=== PATIENT | female | born 1955 | race Caucasian/White ===

== ENCOUNTER 2017-02-07 18:40 | Observation (INO) | payer BC ==
--- NOTE | 2017-02-07 20:00 | ED ---
Elena Alexander Edward, scribed for Liang Hernandez MD on 02/07/17 at 1923 . HPI Febrile Illness - HPI Summary HPI Summary: 61 y/o female presents to ED c/o fever (high 101) and chills starting at 11:00 this morning. Associated sx: fungus on finger, body aches, fatigue and loss of appetite today. The body aches are rated at a 9/10 in severity at triage. The patient states she felt fine yesterday. Denies diarrhea, burning with urination. - History of Current Complaint Chief Complaint: EDFever Hx Obtained From: Patient Onset/Duration: Started Hours Ago Initial Severity: Severe Current Severity: Severe Pain Intensity: 9 Pain Scale Used: 0-10 Numeric Associated Signs and Symptoms: Arthralgia - body aches, Chills, Other: - fatigue , loss of appetite, fungus on finger - Allergy/Home Medications Allergies/Adverse Reactions: Allergies Allergy/AdvReac Type Severity Reaction Status Date / Time No Known Allergies Allergy Verified 12/06/15 09:20 PMH/Surg Hx/FS Hx/Imm Hx Previously Healthy: No Endocrine/Hematology History: Denies: Hx Diabetes Musculoskeletal History: Reports: Hx Arthritis - Surgical History Surgery Procedure, Year, and Place: [facility] Infectious Disease History: No Infectious Disease History: Denies: Traveled Outside the [place] in Last 30 Days - Family History Known Family History: Positive: Diabetes - Grandmother, Other - Mother - polio. Grandmother - cancer - Social History Alcohol Use: None Hx Substance Use: No Substance Use Type: Reports: None Hx Tobacco Use: No Smoking Status (MU): Never Smoked Tobacco Review of Systems Positive: Fever, Chills, Fatigue, Other - Loss of appetite Eyes: Negative ENT: Negative Cardiovascular: Negative Respiratory: Negative Gastrointestinal: Negative Negative: Diarrhea Genitourinary: Negative Negative: burning Positive: Arthralgia - Body aches Skin: Negative Neurological: Negative Psychological: Normal All Other Systems Reviewed And Are Negative: Yes Physical Exam Triage Information Reviewed: Yes Vital Signs On Initial Exam: Initial Vitals Temp Pulse Resp BP Pulse Ox 98.8 F 105 17 150/79 92 02/07/17 18:43 02/07/17 18:43 02/07/17 18:43 02/07/17 18:43 02/07/17 18:43 Vital Signs Reviewed: Yes Appearance: Positive: Well-Appearing, No Pain Distress, Obese - morbidly Skin: Positive: Warm Head/Face: Positive: Normal Head/Face Inspection Eyes: Positive: SANDRA ENT: Positive: Hearing grossly normal, Pharynx normal Neck: Positive: Supple Respiratory/Lung Sounds: Positive: Clear to Auscultation, Breath Sounds Present Cardiovascular: Positive: RRR Abdomen Description: Positive: Soft, Other: - obese, mildly indurated pannicula. Negative: CVA Tenderness (R), CVA Tenderness (L) Bowel Sounds: Positive: Present Musculoskeletal: Positive: Strength/ROM Intact Neurological: Positive: Alert, Oriented to Person Place, Time Psychiatric: Positive: Affect/Mood Appropriate Diagnostics - Vital Signs Vital Signs Temp Pulse Resp BP Pulse Ox 02/07/17 18:43 98.8 F 105 17 150/79 92 - Laboratory Result Diagrams: 02/07/17 20:04 02/07/17 20:04 Lab Statement: Any lab studies that have been ordered have been reviewed, and results considered in the medical decision making process. - Radiology CXR Xray Interpretation: No Acute Changes - FINDINGS SUGGESTIVE OF COPD, NO EVIDENCE FOR ACUTE CHANGES Radiology Interpretation Completed By: Radiologist Re-Evaluation - Re-Evaluation 1 Comment: resultsd/w pt, case d/w hospitalist Course/Dx - Course Assessment/Plan: 61 y/o female presents to ED c/o febrile illness (high 101). CXR suggests COPD but no acute changes. Test results show WBC 14.8. Patient will be admitted to [facility] after discussion with Dr. Contreras Glover. - Diagnoses Provider Diagnoses: UTI (urinary tract infection) - Provider Notifications Instructed by Provider To: Admit As Inpatient Discharge - Discharge Plan Condition: Fair Disposition: ADMITTED TO [facility] documentation as recorded by the Elena baer Edward accurately reflects the service I personally performed and the decisions made by me, Liang Hernandez MD.
--- NOTE | 2017-02-07 20:03 | RAD ---
INDICATION: Fever. COMPARISON: Comparison is made with a prior testicular study from June 16, 2013. TECHNIQUE: AP and lateral views of the chest were obtained. FINDINGS: The heart is within normal limits in size. Mediastinal and hilar contours appear within normal limits. The lungs are hyperinflated and clear. No pleural effusion is seen. IMPRESSION: FINDINGS SUGGESTIVE OF COPD, NO EVIDENCE FOR ACUTE FINDING.
[2017-02-07 20:12] LABS: Hematocrit 43 % (35-47); Hemoglobin 13.9 g/dl (12.0-16.0); Mean Corpuscular HGB Conc 33 g/dl (31-36); Mean Corpuscular Hemoglobin 28 pg (27-31); Mean Corpuscular Volume 85 fL (80-97); Mean Platelet Volume 9 um3 (7.4-10.4); Red Blood Count 5.03 10^6/ul (4.0-5.4); Red Cell Distribution Width 14 % (10.5-15); White Blood Count 14.8 10^3/ul (3.5-10.8)
[2017-02-07 20:18] LABS: Add Diff/Slide Review? Slide Review Added; Comments Flag Yes
[2017-02-07 20:26] LABS: Albumin 3.5 g/dL (3.2-5.2); BUN/Creatinine Ratio 12.1 (8-20); Calcium 8.6 mg/dL (8.6-10.3); EGFR African American 73.1 (>60); EGFR Non-African American 56.8 (>60); Globulin 3.5 g/dL (2-4); Potassium 4.1 mmol/L (3.5-5.0); Total Bilirubin 0.8 mg/dL (0.2-1.0)
[2017-02-07 20:34] LABS: Urine Bacteria 2+ (Absent); Urine Bilirubin Negative (Negative); Urine Glucose Negative (Negative); Urine Nitrite Positive (Negative)
[2017-02-07] MEDS ORDERED: Levofloxacin 500 MG IVPREMIX(* 500 MG/100 ML BAG IVPB ONE (20:46)
[2017-02-07] MEDS ORDERED: Acetaminophen TAB* 325 MG PO PRN (21:45)
[2017-02-07] MEDS ORDERED: Albuterol 2.5 MG/3 ML NEB.SOL* (0.083%) INH PRN (21:45)
[2017-02-07] MEDS ORDERED: Ondansetron INJ* 2 MG/ML VIAL IV PRN (21:46)
[2017-02-07] MEDS ORDERED: traMADol TAB* 50 MG PO PRN (21:46)
[2017-02-07] MEDS ORDERED: Phenazopyridine TAB* 100 MG PO PRN (21:47)
--- NOTE | 2017-02-07 21:49 | HP ---
H&P (Free Text) History and Physical: PCP: Sheeba Martel MD Date/Time of Evaluation: 02/07/2017 2325 CC: fever HPI: Mrs Mccoy is a 61YO super morbidly obese female presents reporting rapid onset of malaise associated with F/C, bi-temporal headache, generalized weakness , and decreased appetite. She has a HX of sepsis 2nd panniliculitis out of concern for which she decided to come for evaluation. She denies sweats, earache , sore throat, confusion, chest pain, change in baseline SOB, cough, or congestion. 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 Interestingly she is adamant her fingernails were absolutely normal this AM prior to becoming ill and now have sub-ungual yellowing and onycholysis. PMedHx super morbid obesity psoriatic arthritis sepsis 2nd panniliculitis GERD overactive bladder anxiety Ambulatory Orders Nursing to reconcile. Furosemide TAB* [Lasix TAB*] 40 mg PO DAILY 03/07/13 Omeprazole CAP* [Prilosec CAP*] 20 mg PO DAILY 03/07/13 Amoxicillin/Clavulanate TAB* [Augmentin TAB*] 875 mg PO BID 04/29/15 Meloxicam(NF) [Mobic(NF)] 7.5 mg PO BID WITH MEALS 04/29/15 Miconazole Nitrate (Topical) [Lotrimin AF Powder] 2 % TOPICAL TID 04/29/15 Oxybutynin TAB* [Ditropan TAB*] 5 mg PO TID 04/29/15 Potassium Chloride LIQUID* [Klor-Con LIQUID*] 20 meq PO DAILY 04/29/15 Spironolactone TAB* [Aldactone TAB*] 100 mg PO DAILY 04/29/15 Diazepam TAB(*) [Valium TAB(*)] 5 mg PO Q6H PRN #15 tab MDD 4 12/06/15 oxyCODONE/Acetamin 5/325 MG* [Percocet 5/325 TAB*] 1 tab PO Q8H PRN #10 tab MDD 4 12/06/15 Allergies No Known Allergies Allergy (Verified 12/06/15 09:20) PSurgHx cholecystectomy SocHx: quit smoking >10years ago w/ ~35PYHX, denies alcohol & recreational drug use; lives with her ; 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 Father passed in his 60s from gastric CA 2nd alcoholism. Sister1: breast CA survivor; Sister2: urinary CA survivor. Son: psoriasis; Daughter: psoriasis ROS: as above, otherwise reviewed and all were negative Constitutional: NAD, normally developed, supermorbidly obese white female vitals: Vital Signs Temp 37.1 C 02/07/17 18:43 Pulse 105 02/07/17 18:43 Resp 17 02/07/17 18:43 BP 150/79 02/07/17 18:43 Pulse Ox 92 02/07/17 18:43 Intake & Output 02/06/17 02/07/17 02/07/17 23:59 11:59 23:59 Weight 181.437 kg HEENM: atraumatic; sclera/conjunctiva: non-icteric/clear; hearing: clinically intact; oropharynx: clear, mucosa moist Neck: soft tissue: non-tender; thyroid: normal Pulmonary: diminished B, fair aeration, no accessory muscle use CV: RR/RR, normal S1S2, no carotid bruit, no jugular venous distention, 2+ B DP/ PT, no edema Abdominal: large pendulous panniliculus with chronic induration with small area of serous drainage under on patient's left without tenderness, warmth, malodor, or flocculence; soft, protuberant, non-distended, non-tender, no rebound/ guarding/rigidity, normoactive bowel sounds, no hepatosplenomegaly or masses, no costovertebral angle tenderness Musculoskeletal: general: grossly intact w/o tenderness Integumental: as above; otherwise multiple fingernails have chronic changes of psoriatic arthritis with pitting along with evidence of fungal infection and onycholysis which would have taken weeks to form despite her insistent it has been hours Psychiatric orientation: AA&O to PPS affect: calm mood: cooperative eye contact: good content: reliable responses: timely insight: good Testing: Lab Results 02/07/17 02/07/17 02/07/17 Range/Units 20:04 20:04 20:22 WBC 14.8 H (3.5-10.8) 10^3/ul RBC 5.03 (4.0-5.4) 10^6/ul Hgb 13.9 (12.0-16.0) g/dl Hct 43 (35-47) % MCV 85 (80-97) fL MCH 28 (27-31) pg MCHC 33 (31-36) g/dl RDW 14 (10.5-15) % Plt Count 157 (150-450) 10^3/ul MPV 9 (7.4-10.4) um3 Neut % (Auto) 95.6 H (38-83) % Lymph % (Auto) 2.0 L (25-47) % [place] % (Auto) 1.7 (1-9) % Eos % (Auto) 0.2 (0-6) % Baso % (Auto) 0.5 (0-2) % Absolute Neuts (auto) 14.2 H (1.5-7.7) 10^3/ul Absolute Lymphs (auto) 0.3 L (1.0-4.8) 10^3/ul Absolute Monos (auto) 0.3 (0-0.8) 10^3/ul Absolute Eos (auto) 0 (0-0.6) 10^3/ul Absolute Basos (auto) 0.1 (0-0.2) 10^3/ul Absolute Nucleated RBC 0.01 10^3/ul Nucleated RBC % 0 Sodium 133 (133-145) mmol/L Potassium 4.1 (3.5-5.0) mmol/L Chloride 98 L (101-111) mmol/L Carbon Dioxide 30 (22-32) mmol/L Anion Gap 5 (2-11) mmol/L BUN 12 (6-24) mg/dL Creatinine 0.99 H (0.51-0.95) mg/dL Est GFR ( Amer) 73.1 (>60) Est GFR (Non-Af Amer) 56.8 (>60) BUN/Creatinine Ratio 12.1 (8-20) Glucose 135 H (70-100) mg/dL Calcium 8.6 (8.6-10.3) mg/dL Total Bilirubin 0.80 (0.2-1.0) mg/dL AST 18 (13-39) U/L ALT 14 (7-52) U/L Alkaline Phosphatase 107 H (34-104) U/L Total Protein 7.0 (6.4-8.9) g/dL Albumin 3.5 (3.2-5.2) g/dL Globulin 3.5 (2-4) g/dL Albumin/Globulin Ratio 1.0 (1-3) Urine Color Yellow Urine Appearance Cloudy Urine pH 7.0 (5-9) Ur Specific [place] 1.012 (1.010-1.030) Urine Protein Negative (Negative) Urine Ketones Negative (Negative) Urine Blood 2+ H (Negative) Urine Nitrate Positive H (Negative) Urine Bilirubin Negative (Negative) Urine Urobilinogen Negative (Negative) Ur Leukocyte Esterase 2+ H (Negative) Urine WBC (Auto) 3+(>20/hpf) H (Absent) Urine RBC (Auto) 3+(>10/hpf) H (Absent) Ur Squamous Epith Cells Present H (Absent) Urine Bacteria 2+ H (Absent) Urine Glucose Negative (Negative) CXR, personally reviewed: IMPRESSION: FINDINGS SUGGESTIVE OF COPD, NO EVIDENCE FOR ACUTE FINDING. Impression: 61F super morbidly obese (BMI 73) presents with fever found to have UTI DIAGNOSIS & PLAN Primary febrile UTI : observation for initiation of ABX via IV : urine CX : supportive care Secondary super morbid obesity : nutrition consult : PT/OT evaluations GERD : omeprazole psoriatic osteoarthritis : review medications once reconciled Admission Rational: obseravation for initiation of ABX via IV for febrile UTI DVTp: SCDs & heparin SQ Code Status: full HCP:
[2017-02-07] MEDS ORDERED: Ondansetron INJ* 2 MG/ML VIAL ONE (21:53)
[2017-02-08] MEDS ORDERED: Heparin VIAL(*) 5000 UNITS/ML VIAL (FIVE THOUSAND) SUBCUT SCH (06:00)
[2017-02-08] MEDS ORDERED: Omeprazole CAP* 20 MG PO SCH (06:00)
[2017-02-08 06:55] LABS: Hematocrit 40 % (35-47); Hemoglobin 13.1 g/dl (12.0-16.0); Mean Corpuscular HGB Conc 33 g/dl (31-36); Mean Corpuscular Hemoglobin 28 pg (27-31); Mean Corpuscular Volume 85 fL (80-97); Mean Platelet Volume 10 um3 (7.4-10.4); Red Cell Distribution Width 14 % (10.5-15)
[2017-02-08] MEDS ORDERED: Docusate CAP* 100 MG PO SCH (09:00)
--- NOTE | 2017-02-08 11:12 | PN ---
Subjective Date of Service: 02/08/17 Interval History: Ms. Mccoy states that she is feeling great this morning. She denies chest pain , SOB, nausea, or abdominal/flank pain. She is eager for discharge to home. Objective Active Medications: Acetaminophen (Tylenol Tab*) 650 mg PO Q6H PRN Albuterol (Ventolin 2.5 Mg/3 Ml Neb.Ifeoma*) 2.5 mg INH Q2H PRN Docusate Sodium (Colace Cap*) 200 mg PO BID ELENA Heparin Sodium (Porcine) (Heparin Vial(*)) 5,000 units SUBCUT Q8HR ELENA Lactated Ringer's (Lactated Ringers 1000 Ml Bag*) 1,000 mls @ 75 mls/hr IV PER RATE ELENA Levofloxacin/Dextrose (Levaquin 250 Mg Ivpremx(*)) 250 mg in 50 mls @ 50 mls/ hr IVPB Q24H ELENA Melatonin (Melatonin (Nf)) 3 mg PO BEDTIME PRN; Protocol Omeprazole (Prilosec Cap*) 20 mg PO DAILY@0600 ELENA Ondansetron HCl (Zofran Inj*) 4 mg IV Q6H PRN Phenazopyridine HCl (Pyridium Tab*) 200 mg PO TID PRN Tramadol HCl (Ultram*) 50 mg PO Q6H PRN Vital Signs 02/07/17 02/07/17 02/07/17 21:38 21:39 21:40 Temperature 98.4 F 98.8 F Pulse Rate 74 82 80 Respiratory 18 20 18 Rate Blood Pressure 122/67 152/74 (mmHg) O2 Sat by Pulse 98 96 99 Oximetry 02/07/17 02/07/17 02/07/17 21:41 22:00 22:30 Temperature 98.8 F Pulse Rate 76 86 82 Respiratory 18 18 20 Rate Blood Pressure 105/58 152/74 (mmHg) O2 Sat by Pulse 97 95 96 Oximetry 02/08/17 02/08/17 04:11 07:26 Temperature 98.1 F Pulse Rate 89 Respiratory 18 18 Rate Blood Pressure 116/52 (mmHg) O2 Sat by Pulse 94 Oximetry Oxygen Devices in Use Now: None Appearance: Female lying in bed in NAD Eyes: No Scleral Icterus Ears/Nose/Mouth/Throat: NL Teeth, Lips, Gums Neck: NL Appearance and Movements; NL JVP, Trachea Midline Respiratory: Symmetrical Chest Expansion and Respiratory Effort, Clear to Auscultation Cardiovascular: NL Sounds; No Murmurs; No JVD, No Edema Abdominal: NL Sounds; No Tenderness; No Distention Lymphatic: No Cervical Adenopathy Extremities: No Edema Skin: No Rash or Ulcers, - - Erythema to distal pannus, unchanged from baseline per patient and her partner Neurological: Alert and Oriented x 3, NL Muscle Strength and Tone Nutrition: Taking PO's Result Diagrams: 02/08/17 06:04 02/07/17 20:04 Assess/Plan/Problems-Billing Assessment: Ms. Mccoy is a 61 yo female with super morbid obesity and psoriatic arthritis who was admitted on 02/07/17 with febrile UTI. - Patient Problems (1) UTI (urinary tract infection) Comment: - No fever overnight, feels quite well. Tolerating oral intake. No flank, back or abdominal pain. - Switch to bactrim to complete 5 day course. Status and Disposition: OBV. Discharge to home.
[2017-02-08 11:57] VITALS: BP 108/62
[2017-02-08] MEDS ORDERED: Levofloxacin 250 MG IVPREMX(*) 250 MG/50 ML BAG IVPB SCH (22:00)
[2017-02-08] MEDS ORDERED: CMCS: Melatonin (NF) 3 MG TAB PO PRN (22:00)
--- NOTE | 2017-02-09 03:26 | DS ---
CC: Dr. Martel * [facility] MEDICINE DISCHARGE SUMMARY: DATE OF ADMISSION: 02/07/17 DATE OF DISCHARGE: 02/08/17 PRIMARY CARE PHYSICIAN: Dr. Martel. ATTENDING PHYSICIAN: Umm Zaidi MD * (dictation provided by Jane Bedoya NP ). PRIMARY DIAGNOSIS: Urinary tract infection. SECONDARY DIAGNOSES: 1. History of super morbid obesity. 2. Psoriatic arthritis. 3. Sepsis secondary to panniculitis. 4. Gastroesophageal reflux disease. 5. Overactive bladder. 6. Anxiety. MEDICATIONS: At the time of discharge: 1. Oxycodone/acetaminophen 5/325 mg one tab p.o. as needed. 2. Diazepam 5 mg p.o. q.6 hours as needed. 3. Oxybutynin 5 mg p.o. t.i.d. 4. Spironolactone 100 mg p.o. daily. 5. Potassium chloride 20 mEq p.o. daily. 6. Omeprazole 20 mg p.o. daily. 7. Miconazole t.i.d. 8. Meloxicam 7.5 mg p.o. b.i.d. with meals. 9. Furosemide 40 mg p.o. daily. HOSPITAL COURSE: Ms. Mccoy is a 61-year-old female with past medical history of psoriatic arthritis, super morbid obesity and sepsis secondary to panniculitis who presented to the hospital on 02/07/17 with concern for fever. Please see the dictated H and P from Dr. Contreras Glover for complete details. In brief, the patient has history of severe illness with panniculitis associated with fever and therefore, she came for evaluation to the ED. In the emergency room, it appeared that her pannus was essentially at baseline in terms of its erythema; however, she had a white blood cell count of 14.8 and urinalysis positive with 2+ leuk esterase and positive nitrites. Ms. Mccoy was monitored in the hospital overnight. She was treated with intravenous Levaquin initially. She has had no fever. Her vital signs are otherwise stable. Her white blood cell count is essentially normal today at 11. She is tolerating oral intake well and is eager for discharge to home. Ms. Mccoy is medically stable for discharge to home for treatment of her urinary tract infection. She does not have a history of frequent UTIs per our record with no resistant organisms identified. I, therefore, plan to treat with Bactrim x5-day course. The patient will follow up with Dr. Martel regarding results from the urine culture. DISPOSITION: To home. DIET: Low fat, low salt. ACTIVITY: As tolerated. FOLLOWUP PLANS: Please follow up with Dr. Martel regarding results of urine culture. TIME SPENT: Approximately 60 minutes was spent in the discharge of this patient , more than half the time was spent with the patient at the bedside reviewing the events leading up to this hospitalization, performing the physical examination, and reviewing my plan of care. JANE BEDOYA NP [id number]/[facility] #: [id number] OLAF
== END 2017-02-08 12:30 | disposition home or self-care (01) ==
LOC: ED 18:40 → MED 21:13
PROVIDERS: ADMIT Hospitalist; ATTEND Internal Medicine
DX: N39.0 Urinary tract infection, site not specified (principal); E66.01 Morbid (severe) obesity due to excess calories; L40.50 Arthropathic psoriasis, unspecified; K21.9 Gastro-esophageal reflux disease without esophagitis; N32.81 Overactive bladder; F41.9 Anxiety disorder, unspecified; Z79.899 Other long term (current) drug therapy; Z87.891 Personal history of nicotine dependence
CPT/HCPCS: 36415; 71020; 80053; 81003; 81015; 85025; 87077; 87086; 87186; 96365; 96372; 96375; 99285; A9270-GY; G0378; J1644; J1956; J2405

== ENCOUNTER 2017-12-01 13:59 | Inpatient (IN) | payer BC ==
[2017-12-01] MEDS ORDERED: NS 0.9% 1000 ML* 1,000 ML IV ONE (14:28)
[2017-12-01] MEDS ORDERED: Levofloxacin 750 MG IVPREMIX(* 750 MG/150 ML BAG IVPB ONE (14:35)
--- NOTE | 2017-12-01 14:53 | RAD ---
HISTORY: Fever, hypotension COMPARISONS: February 07, 2017 VIEWS: 1: frontal portable view of the chest at 2:35 PM FINDINGS: LINES AND TUBES: None. CARDIOMEDIASTINAL SILHOUETTE: The cardiomediastinal silhouette is normal for portable technique. PLEURA: The costophrenic angles are sharp. No pleural abnormalities are noted. LUNG PARENCHYMA: The lungs are clear. ABDOMEN: The upper abdomen is clear. There is no subphrenic gas. BONES AND SOFT TISSUES: Degenerative changes are noted along the spine. IMPRESSION: NO ACTIVE CARDIOPULMONARY DISEASE.
[2017-12-01 15:10] LABS: ABS Basophils 0 10^3/ul (0-0.2); ABS Eosinophils 0 10^3/ul (0-0.6); ABS Lymphocytes 0.3 10^3/ul (1.0-4.8); ABS Monocytes 0.4 10^3/ul (0-0.8); ABS Neutrophils 16.6 10^3/ul (1.5-7.7); ABS Nucleated RBC 0 10^3/ul; Eosinophil % 0.2 % (0-6); Hematocrit 40 % (35-47); Hemoglobin 13.1 g/dl (12.0-16.0); Lymphocyte % 1.9 % (25-47); Mean Corpuscular HGB Conc 33 g/dl (31-36); Mean Corpuscular Hemoglobin 27 pg (27-31); Mean Corpuscular Volume 82 fL (80-97); Mean Platelet Volume 9.3 um3 (7.4-10.4); Nucleated Red Blood Cells % 0; Platelet Count 170 10^3/ul (150-450); Red Blood Count 4.82 10^6/ul (4.0-5.4); Red Cell Distribution Width 15 % (10.5-15); White Blood Count 17.4 10^3/ul (3.5-10.8)
[2017-12-01 15:28] LABS: INR 1.28 (0.77-1.02)
[2017-12-01 15:33] LABS: EGFR Non-African American 62.4 (>60)
[2017-12-01] MEDS ORDERED: NS 0.9% 1000 ML* 2,000 ML IV ONE (16:15)
--- NOTE | 2017-12-01 17:58 | ED ---
Wesley Alexander Jennifer, scribed for John Fonseca MD on 12/01/17 at 1419 . Complex/Multi-Sys Presentation - HPI Summary HPI Summary: The patient is a 62 y/o F who presents to the ED with weakness, fever, chills, and vaginal bleeding since one month ago. The patient states it started out as chills, body shakes, and fever. She was diagnosed with UTI and given antibiotics , which she finished a couple weeks ago. However, the symptoms began again last night. The patient complains her whole body feels like Im on fire and is swollen. She reports that her vaginal bleeding varies and typically gushes and clots at night, but subsides during the day. She denies dysuria or increased SOB. - History Of Current Complaint Hx Obtained From: Patient Onset/Duration: Sudden Onset, Still Present, Worse Since - last night, Other - began one month ago, went away, but worsened last night Timing: Constant Severity Currently: Moderate Severity Initially: Moderate Aggravating Factor(s): Laying down aggravates vaginal bleeding Associated Signs And Symptoms: Positive: Other - fever, chills, body shakes, weakness, vaginal bleeding. NEGATIVE: dysuria, SOB - Allergies/Home Medications Allergies/Adverse Reactions: Allergies Allergy/AdvReac Type Severity Reaction Status Date / Time No Known Allergies Allergy Verified 12/06/15 09:20 Home Medications: Home Medications Calcipotriene 0.005 % TOPICAL BID 12/01/17 [History Confirmed 12/01/17] Epinastine 0.05% OPHTH(NF) [Elestat 0.05% OPTH YAHAIRA (NF)] 1 drop BOTH EYES DAILY 12/01/17 [History Confirmed 12/01/17] Fluconazole 150 MG (NF) [Diflucan 150 mg (NF)] 150 mg PO ONCE 12/01/17 [History Confirmed 12/01/17] Halobetasol Propionate [Ultravate] 0.05 % TOPICAL BID 12/01/17 [History Confirmed 12/01/17] Miconazole Nitrate [Lotrimin AF] 2 % TOPICAL TID 12/01/17 [History Confirmed ] Nystatin CREAM* [Nystatin Cream*] 1 applic TOPICAL BID 12/01/17 [History Confirmed 12/01/17] Potassium Chlor TAB* [Klor Con ER TAB*] 20 meq PO DAILY 12/01/17 [History Confirmed 12/01/17] PMH/Surg Hx/FS Hx/Imm Hx Endocrine/Hematology History: Reports: Other Endocrine/Hematological Disorders - Hx sepsis Denies: Hx Diabetes Musculoskeletal History: Reports: Hx Arthritis Sensory History: Reports: Hx Contacts or Glasses Denies: Hx Hearing Aid Opthamlomology History: Reports: Hx Contacts or Glasses - Surgical History Surgery Procedure, Year, and Place: [facility] 2008 Infectious Disease History: Denies: Hx of Known/Suspected MRSA - Family History Known Family History: Positive: Diabetes - Grandmother, Other - Mother - polio. Grandmother - cancer - Social History Alcohol Use: None Hx Substance Use: No Substance Use Type: Reports: None Hx Tobacco Use: No Smoking Status (MU): Never Smoked Tobacco Review of Systems Positive: Fever, Chills, Other - Body shakes Negative: Shortness Of Breath Genitourinary: Other - vaginal bleeding Negative: dysuria All Other Systems Reviewed And Are Negative: Yes Physical Exam - Summary Physical Exam Summary: General: well-appearing, no pain distress Skin: warm, color reflects adequate perfusion, dry Head: normal Eyes: EOMI, SANDRA ENT: normal Neck: supple, nontender Respiratory: CTA, breath sounds present Cardiovascular: RRR Abdomen: soft, nontender, pannus is erythematous Bowel: present Musculoskeletal: normal, strength/ROM intact Neurological: sensory/motor intact, A&O x3 Psychological: affect/mood appropriate Triage Information Reviewed: Yes Vital Signs On Initial Exam: Initial Vitals Temp Pulse Resp BP Pulse Ox 98.5 F 99 28 90/65 94 12/01/17 14:10 12/01/17 14:10 12/01/17 14:10 12/01/17 14:10 12/01/17 14:10 Vital Signs Reviewed: Yes Diagnostics - Vital Signs Vital Signs Temp Pulse Resp BP Pulse Ox 12/01/17 16:00 82 109/69 98 12/01/17 15:55 26 12/01/17 15:00 87 97 12/01/17 14:27 99 94/79 95 12/01/17 14:22 97 93 12/01/17 14:15 90/65 12/01/17 14:10 98.5 F 99 28 90/65 94 - Laboratory Lab Results: Lab Results 12/01/17 12/01/1712/01/18 Range/Units 14:55 14:55 14:55 WBC 17.4 H (3.5-10.8) 10^3/ul RBC 4.82 (4.0-5.4) 10^6/ul Hgb 13.1 (12.0-16.0) g/dl Hct 40 (35-47) % MCV 82 (80-97) fL MCH 27 (27-31) pg MCHC 33 (31-36) g/dl RDW 15 (10.5-15) % Plt Count 170 (150-450) 10^3/ul MPV 9.3 (7.4-10.4) um3 Neut % (Auto) 95.5 H (38-83) % Lymph % (Auto) 1.9 L (25-47) % Craig % (Auto) 2.4 (0-7) % Eos % (Auto) 0.2 (0-6) % Baso % (Auto) 0 (0-2) % Absolute Neuts (auto) 16.6 H (1.5-7.7) 10^3/ul Absolute Lymphs (auto) 0.3 L (1.0-4.8) 10^3/ul Absolute Monos (auto) 0.4 (0-0.8) 10^3/ul Absolute Eos (auto) 0 (0-0.6) 10^3/ul Absolute Basos (auto) 0 (0-0.2) 10^3/ul Absolute Nucleated RBC 0 10^3/ul Nucleated RBC % 0 INR (Anticoag Therapy) 1.28 H (0.77-1.02) APTT 29.9 (26.0-36.3) seconds Sodium 136 L (139-145) mmol/L Potassium 4.1 (3.5-5.0) mmol/L Chloride 99 L (101-111) mmol/L Carbon Dioxide 31 (22-32) mmol/L Anion Gap 6 (2-11) mmol/L BUN 15 (6-24) mg/dL Creatinine 0.91 (0.51-0.95) mg/dL Est GFR ( Amer) 80.3 (>60) Est GFR (Non-Af Amer) 62.4 (>60) BUN/Creatinine Ratio 16.5 (8-20) Glucose 130 H (70-100) mg/dL Lactic Acid (0.5-2.0) mmol/L Calcium 8.7 (8.6-10.3) mg/dL Total Bilirubin 1.30 H (0.2-1.0) mg/dL AST 16 (13-39) U/L ALT 13 (7-52) U/L Alkaline Phosphatase 83 (34-104) U/L Total Creatine Kinase 48 (10-223) U/L Troponin I 0.00 (<0.04) ng/mL C-Reactive Protein 237.64 H (< 5.00) mg/L B-Natriuretic Peptide ( - 100) pg/mL Total Protein 6.7 (6.4-8.9) g/dL Albumin 3.3 (3.2-5.2) g/dL Globulin 3.4 (2-4) g/dL Albumin/Globulin Ratio 1.0 (1-3) Lipase < 10 L (11.0-82.0) U/L Procalcitonin (<0.6) ng/mL 12/01/17 12/01/17 12/01/17 Range/Units 14:55 14:55 14:55 WBC (3.5-10.8) 10^3/ul RBC (4.0-5.4) 10^6/ul Hgb (12.0-16.0) g/dl Hct (35-47) % MCV (80-97) fL MCH (27-31) pg MCHC (31-36) g/dl RDW (10.5-15) % Plt Count (150-450) 10^3/ul MPV (7.4-10.4) um3 Neut % (Auto) (38-83) % Lymph % (Auto) (25-47) % Craig % (Auto) (0-7) % Eos % (Auto) (0-6) % Baso % (Auto) (0-2) % Absolute Neuts (auto) (1.5-7.7) 10^3/ul Absolute Lymphs (auto) (1.0-4.8) 10^3/ul Absolute Monos (auto) (0-0.8) 10^3/ul Absolute Eos (auto) (0-0.6) 10^3/ul Absolute Basos (auto) (0-0.2) 10^3/ul Absolute Nucleated RBC 10^3/ul Nucleated RBC % INR (Anticoag Therapy) (0.77-1.02) APTT (26.0-36.3) seconds Sodium (139-145) mmol/L Potassium (3.5-5.0) mmol/L Chloride (101-111) mmol/L Carbon Dioxide (22-32) mmol/L Anion Gap (2-11) mmol/L BUN (6-24) mg/dL Creatinine (0.51-0.95) mg/dL Est GFR ( Amer) (>60) Est GFR (Non-Af Amer) (>60) BUN/Creatinine Ratio (8-20) Glucose (70-100) mg/dL Lactic Acid 1.2 (0.5-2.0) mmol/L Calcium (8.6-10.3) mg/dL Total Bilirubin (0.2-1.0) mg/dL AST (13-39) U/L ALT (7-52) U/L Alkaline Phosphatase (34-104) U/L Total Creatine Kinase (10-223) U/L Troponin I (<0.04) ng/mL C-Reactive Protein (< 5.00) mg/L B-Natriuretic Peptide 63 ( - 100) pg/mL Total Protein (6.4-8.9) g/dL Albumin (3.2-5.2) g/dL Globulin (2-4) g/dL Albumin/Globulin Ratio (1-3) Lipase (11.0-82.0) U/L Procalcitonin 1.6 H (<0.6) ng/mL Result Diagrams: 12/01/17 14:55 12/01/17 14:55 Lab Statement: Any lab studies that have been ordered have been reviewed, and results considered in the medical decision making process. - Radiology CXR Xray Interpretation: No Acute Changes - NO ACTIVE CARDIOPULMONARY DISEASE. Dr. Fonseca has reviewed this report. Radiology Interpretation Completed By: Radiologist - EKG 2383 Cardiac Rate: NL EKG Rhythm: Sinus Rhythm - [address] Segment: Normal Ectopy: None Complex Multi-Symp Course/Dx Course Of Treatment: 30ML/KG IV BOLUS NOT GIVEN DUE TO CONCERN OF CAUSING CHF. ADMIT HOSPITALIST. CRITICAL CARE TIME LESS THAN 30 MINUTES. - Diagnoses Provider Diagnoses: Panniculitis - Physician Notifications Discussed Care Of Patient With: Edenilson Griffin Time Discussed With Above Provider: 15:33 Instructed by Provider To: Admit As Inpatient Discharge - Sign-Out/Discharge Documenting (check all that apply): Discharge/Admit/Transfer - Discharge Plan Condition: Stable Disposition: ADMITTED TO [facility] - Billing Disposition and Condition Condition: STABLE [place] [facility] [place] The documentation as recorded by the Wesley baer Jennifer accurately reflects the service I personally performed and the decisions made by me, John Fonseca MD.
[2017-12-01] MEDS: cefTRIAXone(*) 1 GM in NS 0.9% 50 ML* 50 ML IVPB SCH (18:42)
[2017-12-01] MEDS: MELOXICAM 7.5 MG PO SCH (19:04)
[2017-12-01] MEDS ORDERED: Acetaminophen TAB* 325 MG PO PRN (20:03)
[2017-12-01] MEDS ORDERED: Ondansetron ODT TAB* 4 MG PO PRN (20:09)
[2017-12-01] MEDS: Oxybutynin TAB* 5 MG PO SCH (20:55)
--- NOTE | 2017-12-01 20:59 | PN ---
Hospitalist Progress Note Date of Service: 12/01/17 SEPSIS REASSESSMENT NOTE: TIME OF EVALUATION: 12/01/17 2100 CURRENT STAGE of SEPSIS: Sepsis Vital SIGNS: 12/01/17 12/01/17 12/01/17 14:10 14:15 14:22 Temperature 98.5 F Pulse Rate 99 97 Respiratory 28 Rate Blood Pressure 90/65 90/65 (mmHg) O2 Sat by Pulse 94 93 Oximetry 12/01/17 12/01/17 12/01/17 14:27 15:00 15:55 Temperature Pulse Rate 99 87 Respiratory 26 Rate Blood Pressure 94/79 (mmHg) O2 Sat by Pulse 95 97 Oximetry 12/01/17 12/01/17 12/01/17 16:00 16:27 16:57 Temperature Pulse Rate 82 95 82 Respiratory Rate Blood Pressure 109/69 112/81 96/48 (mmHg) O2 Sat by Pulse 98 94 99 Oximetry 12/01/17 12/01/17 12/01/17 17:00 17:27 17:44 Temperature 98.9 F Pulse Rate 82 86 86 Respiratory 16 Rate Blood Pressure 89/59 89/59 (mmHg) O2 Sat by Pulse 98 98 98 Oximetry 12/01/17 12/01/17 12/01/17 17:55 18:07 19:49 Temperature 98.7 F 98.7 F 98.8 F Pulse Rate 89 89 88 Respiratory 26 16 20 Rate Blood Pressure 124/65 124/65 115/54 (mmHg) O2 Sat by Pulse 95 95 97 Oximetry LACTIC ACID: 12/01/17 14:55 Lactic Acid 1.2 EXCEPTIONS to STANDARD CARE: As noted in the H+P Pt didn't receive full 30mg/kg fluid bolus, she instead received a 3L bolus. This is because of the patient's weight and she has had improvement in her SBP with 3L NS bolus. PHYSICAL ASSESSMENT: Immediate capillary refill, Lung sounds are clear to auscultation bilateral, Heart rate RRR, 2+ bilateral pedal pulses, skin with normal turgor with flushed cheeks, GCS 15.
[2017-12-01] MEDS: Nystatin TOP POWDER* 15 GM BTL TOPICAL SCH (21:52)
--- NOTE | 2017-12-01 22:14 | HP ---
CC: Mack Martel MD * HISTORY AND PHYSICAL: DATE OF ADMISSION: 12/01/17 ATTENDING PHYSICIAN: Edenilson Griffin MD * (dictated by Lara Lara NP) CHIEF COMPLAINT: Fevers, chills, redness to pannus. HISTORY OF PRESENT ILLNESS: Ms. Mccoy is a 62-year-old female with a past medical history significant for super morbid obesity with BMI of approximately 70, psoriatic arthritis, GERD, overactive bladder, anxiety, history of sepsis secondary to panniculitis who states she has been in her usual state of health until 1 to 2 days ago when she developed increased redness to her pannus. She reports having a fever up to 101 degrees last evening. She reports chills. She denies any chest pain, shortness of breath, nausea, vomiting, diarrhea, abdominal pain, dysuria, or other urinary symptoms. The patient states for several months now she has been having heavy vaginal bleeding. She states she had gone several years without any menses. She reports being worked up by [facility] [employer] for this and has underwent biopsies and it is felt that her bleeding is secondary to her body producing estrogen secondary to her morbid obesity. The patient reports also within the last few weeks having a urinary tract infection and was taking antibiotics for that. She also reports increased swelling of her pannus over the last few days. Due to her symptoms, she presented to the emergency room for further evaluation. While in the emergency room, the patient had labs showing a white blood cell count of 17.4. She did not have an elevated lactic acid. She had an EKG without significant findings, a chest x-ray with no acute disease. She received a liter of saline and Levaquin. During her time in the emergency room her blood pressures improved. Hospitalists were asked to evaluate the patient for admission for panniculitis. PAST MEDICAL HISTORY: 1. Super morbid obesity, BMI approximately 70. 2. Psoriatic arthritis. 3. GERD. 4. Overactive bladder. 5. Anxiety. 6. History of sepsis secondary to panniculitis. PAST SURGICAL HISTORY: 1. Status post cholecystectomy. 2. Status post tubal ligation. HOME MEDICATIONS: Include: 1. Spironolactone 100 mg oral daily. 2. Potassium chloride 20 mEq oral daily. 3. Oxybutynin 5 mg oral 3 times daily. 4. Omeprazole 20 mg oral daily. 5. Nystatin cream topical twice daily. 6. Meloxicam 7.5 mg oral twice daily with meals. 7. Miconazole 2% topical 3 times daily. 8. Halobetasol 0.05% topical twice daily. 9. Furosemide 40 mg oral daily. 10. Fluconazole 150 mg oral once. 11. Elestat 0.05% ophthalmic 1 drop to both eyes daily. 12. Calcipotriene 0.05% topical twice daily. ALLERGIES: No known drug allergies. FAMILY HISTORY: The patient denies any family history of coronary artery disease, diabetes mellitus. The patient's father passed in his 60s from gastric cancer secondary to alcoholism. She has a sister with a history of breast cancer and a sister with a history of ovarian cancer. SOCIAL HISTORY: The patient is a former smoker quitting 40 years ago. Prior to that, she had a 30-year smoking history. She denies alcohol, recreational drug use. The patient's , Guillermo Mccoy, will be her surrogate decision maker in the event she is unable to make decisions for herself. REVIEW OF SYSTEMS: I performed an 11-point review of systems. All the pertinent positives and negatives are mentioned in the history of present illness. Remaining review of systems is negative. PHYSICAL EXAMINATION GENERAL APPEARANCE: The patient is alert, pleasant, appears to be in no acute distress. VITAL SIGNS: Temperature 98.5, heart rate 99, respiratory rate 28, O2 sat 94% on room air, blood pressure 90/65. HEENT: Normocephalic, atraumatic. Pupils are equal and reactive to light. Extraocular movements are intact. RESPIRATORY: There is no accessory muscle use. The lungs are clear, but diminished to auscultation, bilateral. CARDIOVASCULAR: Regular rate and rhythm. S1, S2 present. There are no murmurs , rubs, or gallops heard. ABDOMEN: Soft, large, nontender. There are bowel sounds present x4. EXTREMITIES: There is no lower extremity edema. DP and PT pulses are 1+ and symmetric. MUSCULOSKELETAL: There is no clubbing or cyanosis noted. The patient exhibits good strength in all extremities. NEUROLOGICAL: The patient is alert and oriented x4. Cranial nerves II through XII are grossly intact. PSYCHOLOGICAL: The patient is calm and cooperative. SKIN: The patient has areas of induration and erythema to her pannus. No obvious open areas were noted. It was difficult to fully visualize the entire pannus as the patient was lying on her side and unable to get on her back. DIAGNOSTIC STUDIES/LABORATORY DATA: Sodium 136, potassium 4.1, chloride 99, CO2 of 21, BUN 15, creatinine 0.91, glucose 130. White blood cell count 17.4, hemoglobin 13.1, hematocrit 40, platelet count 170. Total bili 1.30. INR 1.28. EKG shows a sinus rhythm at a rate of 91. This EKG is similar to previous EKG from 05/09/11. There are no acute signs of ischemia. Chest from today. Radiologist's impression: No active cardiopulmonary disease. IMPRESSION: Ms. Mccoy is a 62-year-old female with a past medical history significant for super morbid obesity, psoriatic arthritis, GERD, overactive bladder, anxiety, sepsis secondary to panniculitis who presents to the emergency room with complaints of fever, chills, and pannus erythema. She will be admitted as an inpatient for panniculitis with associated sepsis. ASSESSMENT/PLAN: 1. Panniculitis with associated severe sepsis. The patient is meeting SIRS criteria with leukocytosis, tachycardia, tachypnea. She has had 2 low blood pressures here in the emergency room qualifying her for severe sepsis. She is meeting qSofa criteria with 1 point for hypotension. She so far has received a liter of fluid and I am going to give her 2 more liters for a total of 3 L fluid bolus. According to her body weight, she should get a 5454 bolus, but I feel that this will be too much for her. I will start with a 3 L bolus and then give her IV hydration overnight. She is getting a dose of Levaquin here in the emergency room, but I am going to change that to ceftriaxone. She does not have any lactic acidosis. She has a procalcitonin of 1.6. CRP is 237.64. I will add an ESR and recheck her CRP in the morning, recheck her labs in the morning. She has had blood cultures drawn in the emergency room. She has urinalysis pending. The patient has 2 points for qSOFA for hypotension and tachypnea. 2. Vaginal bleeding. According to the patient, she has postmenopausal vaginal bleeding. She has been having this worked up with [employer] outpatient. With this, I am going to hold on any chemical DVT prophylaxis as I do not want to increase her bleeding. She should continue to follow with [employer] outpatient. Per the patient, it is suspected that her bleeding is secondary to her body producing estrogen and due to her obesity. 3. Elevated bilirubin. Suspect this is secondary to the patient's sepsis. We will recheck in the morning. 4. Gastroesophageal reflux disease. The patient will be continued on her home omeprazole. 5. Overactive bladder. The patient will be continued on her home Ditropan. 6. Super morbid obesity. The patient's BMI is approximately 70 or 71. I will ask for a nutrition consult. 7. Psoriatic arthritis. Continue home medications. 8. Fluids, electrolytes, and nutrition. The patient will be on a heart healthy diet. 9. Code status. Full code. 10. DVT prophylaxis. The patient is at highest risk, but due to her significant reported vaginal bleeding, I am going to hold any chemical DVT prophylaxis and place her on SCDs only. 11. Disposition. Inpatient. TIME SPENT: Time spent for this admission was approximately 60 minutes, greater than half of that was spent with the patient and discussing medications, past medical history, the events leading up to her arrival today, performing a physical examination. The case has been reviewed with the attending, Dr. Griffin, who agrees with the plan of care. Reviewed by TRISTA KABA 12/02/17 1838 [id number]/[facility] #: [id number] OLAF
[2017-12-01] MEDS: NS 0.9% 1000 ML* 1,000 ML IV SCH (23:51)
[2017-12-02 01:08] LABS: Urine Appearance Cloudy; Urine Blood 3+ (Negative); Urine Ketones Negative (Negative); Urine Protein 1+(30 mg/dL) (Negative); Urine Specific Gravity 1.006 (1.010-1.030); Urine Urobilinogen Negative (Negative)
[2017-12-02 01:10] LABS: Urine Color Red
[2017-12-02 06:35] LABS: ABS Basophils 0.1 10^3/ul (0-0.2); ABS Eosinophils 0 10^3/ul (0-0.6); ABS Lymphocytes 0.6 10^3/ul (1.0-4.8); ABS Monocytes 0.6 10^3/ul (0-0.8); ABS Neutrophils 9.6 10^3/ul (1.5-7.7); ABS Nucleated RBC 0 10^3/ul; Eosinophil % 0.4 % (0-6); Hematocrit 36 % (35-47); Lymphocyte % 5.3 % (25-47); Mean Corpuscular HGB Conc 34 g/dl (31-36); Mean Corpuscular Hemoglobin 28 pg (27-31); Mean Corpuscular Volume 83 fL (80-97); Mean Platelet Volume 9.4 um3 (7.4-10.4); Nucleated Red Blood Cells % 0; Platelet Count 144 10^3/ul (150-450); Red Blood Count 4.32 10^6/ul (4.0-5.4); Red Cell Distribution Width 15 % (10.5-15); White Blood Count 10.9 10^3/ul (3.5-10.8)
[2017-12-02 06:49] LABS: EGFR Non-African American 79.3 (>60)
[2017-12-02] MEDS ORDERED: NS 0.9% 1000 ML* 1,000 ML IV ONE (07:35)
[2017-12-02] MEDS: Potassium Chloride LIQUID* 20 MEQ PACKET PO SCH (08:20)
[2017-12-02] MEDS: Omeprazole CAP* 20 MG PO SCH (08:21)
[2017-12-02] MEDS: Oxybutynin TAB* 5 MG PO SCH ×3 (08:21→20:48)
[2017-12-02] MEDS: Nystatin TOP POWDER* 15 GM BTL TOPICAL SCH ×3 (08:24→20:48)
[2017-12-02] MEDS: NS 0.9% 1000 ML* 1,000 ML IV SCH ×2 (09:19→17:29)
[2017-12-02] MEDS: EPINASTINE 0.05% BOTH EYES SCH (09:53)
[2017-12-02] MEDS: MELOXICAM 7.5 MG PO SCH (09:53)
--- NOTE | 2017-12-02 15:37 | PN ---
Subjective Date of Service: 12/02/17 Interval History: Ms. Mccoy reports that she is feeling much better today. She also reports less redness to her pannus. She denies chest pain, SOB, nausea, or abdominal pain. Objective Active Medications: Acetaminophen (Tylenol Tab*) 650 mg PO Q6H PRN Epinastine HCl (Elestat 0.05% Opth Ifeoma (Nf)) 1 drop BOTH EYES DAILY ELENA Sodium Chloride (Ns 0.9% 1000 Ml*) 1,000 mls @ 125 mls/hr IV PER RATE ELENA Ceftriaxone Sodium 1 gm/ (Sodium Chloride) 50 mls @ 200 mls/hr IVPB Q24H ELENA Nystatin (Nystatin Top Powder*) 1 applic TOPICAL TID ELENA Omeprazole (Prilosec Cap*) 20 mg PO DAILY ELENA Ondansetron HCl (Zofran Odt Tab*) 4 mg PO Q6H PRN Oxybutynin Chloride (Ditropan Tab*) 5 mg PO TID ELENA Potassium Chloride (Klor-Con Liquid*) 20 meq PO DAILY [facility] Vital Signs: Temp Pulse Resp BP Pulse Ox 97.3 F 73 17 105/62 96 12/02/17 11:20 12/02/17 11:20 12/02/17 11:20 12/02/17 11:20 12/02/17 11:20 Oxygen Devices in Use Now: None Appearance: Female lying in bed in NAD Eyes: No Scleral Icterus Ears/Nose/Mouth/Throat: Mucous Membranes Moist Neck: Trachea Midline Respiratory: Symmetrical Chest Expansion and Respiratory Effort, Clear to Auscultation Cardiovascular: NL Sounds; No Murmurs; No JVD Abdominal: NL Sounds; No Tenderness; No Distention Lymphatic: No Cervical Adenopathy Skin: - - Pannus erythematous, no open areas Neurological: Alert and Oriented x 3, NL Muscle Strength and Tone Result Diagrams: 12/02/17 06:16 12/02/17 06:16 Additional Lab and Data: Lab Results 12/01/17 12/01/17 12/01/17 Range/Units 14:55 14:55 14:55 WBC 17.4 H (3.5-10.8) 10^3/ul RBC 4.82 (4.0-5.4) 10^6/ul Hgb 13.1 (12.0-16.0) g/dl Hct 40 (35-47) % MCV 82 (80-97) fL MCH 27 (27-31) pg MCHC 33 (31-36) g/dl RDW 15 (10.5-15) % Plt Count 170 (150-450) 10^3/ul MPV 9.3 (7.4-10.4) um3 Neut % (Auto) 95.5 H (38-83) % Lymph % (Auto) 1.9 L (25-47) % [place] % (Auto) 2.4 (0-7) % Eos % (Auto) 0.2 (0-6) % Baso % (Auto) 0 (0-2) % Absolute Neuts (auto) 16.6 H (1.5-7.7) 10^3/ul Absolute Lymphs (auto) 0.3 L (1.0-4.8) 10^3/ul Absolute Monos (auto) 0.4 (0-0.8) 10^3/ul Absolute Eos (auto) 0 (0-0.6) 10^3/ul Absolute Basos (auto) 0 (0-0.2) 10^3/ul Absolute Nucleated RBC 0 10^3/ul Nucleated RBC % 0 INR (Anticoag Therapy) 1.28 H (0.77-1.02) APTT 29.9 (26.0-36.3) seconds Sodium 136 L (139-145) mmol/L Potassium 4.1 (3.5-5.0) mmol/L Chloride 99 L (101-111) mmol/L Carbon Dioxide 31 (22-32) mmol/L Anion Gap 6 (2-11) mmol/L BUN 15 (6-24) mg/dL Creatinine 0.91 (0.51-0.95) mg/dL Est GFR ( Amer) 80.3 (>60) Est GFR (Non-Af Amer) 62.4 (>60) BUN/Creatinine Ratio 16.5 (8-20) Glucose 130 H (70-100) mg/dL Lactic Acid (0.5-2.0) mmol/L Calcium 8.7 (8.6-10.3) mg/dL Total Bilirubin 1.30 H (0.2-1.0) mg/dL AST 16 (13-39) U/L ALT 13 (7-52) U/L Alkaline Phosphatase 83 (34-104) U/L Total Creatine Kinase 48 (10-223) U/L Troponin I 0.00 (<0.04) ng/mL C-Reactive Protein 237.64 H (< 5.00) mg/L B-Natriuretic Peptide ( - 100) pg/mL Total Protein 6.7 (6.4-8.9) g/dL Albumin 3.3 (3.2-5.2) g/dL Globulin 3.4 (2-4) g/dL Albumin/Globulin Ratio 1.0 (1-3) Lipase < 10 L (11.0-82.0) U/L Procalcitonin (<0.6) ng/mL 12/01/17 12/01/17 12/01/17 Range/Units 14:55 14:55 14:55 WBC (3.5-10.8) 10^3/ul RBC (4.0-5.4) 10^6/ul Hgb (12.0-16.0) g/dl Hct (35-47) % MCV (80-97) fL MCH (27-31) pg MCHC (31-36) g/dl RDW (10.5-15) % Plt Count (150-450) 10^3/ul MPV (7.4-10.4) um3 Neut % (Auto) (38-83) % Lymph % (Auto) (25-47) % [place] % (Auto) (0-7) % Eos % (Auto) (0-6) % Baso % (Auto) (0-2) % Absolute Neuts (auto) (1.5-7.7) 10^3/ul Absolute Lymphs (auto) (1.0-4.8) 10^3/ul Absolute Monos (auto) (0-0.8) 10^3/ul Absolute Eos (auto) (0-0.6) 10^3/ul Absolute Basos (auto) (0-0.2) 10^3/ul Absolute Nucleated RBC 10^3/ul Nucleated RBC % INR (Anticoag Therapy) (0.77-1.02) APTT (26.0-36.3) seconds Sodium (139-145) mmol/L Potassium (3.5-5.0) mmol/L Chloride (101-111) mmol/L Carbon Dioxide (22-32) mmol/L Anion Gap (2-11) mmol/L BUN (6-24) mg/dL Creatinine (0.51-0.95) mg/dL Est GFR ( Amer) (>60) Est GFR (Non-Af Amer) (>60) BUN/Creatinine Ratio (8-20) Glucose (70-100) mg/dL Lactic Acid 1.2 (0.5-2.0) mmol/L Calcium (8.6-10.3) mg/dL Total Bilirubin (0.2-1.0) mg/dL AST (13-39) U/L ALT (7-52) U/L Alkaline Phosphatase (34-104) U/L Total Creatine Kinase (10-223) U/L Troponin I (<0.04) ng/mL C-Reactive Protein (< 5.00) mg/L B-Natriuretic Peptide 63 ( - 100) pg/mL Total Protein (6.4-8.9) g/dL Albumin (3.2-5.2) g/dL Globulin (2-4) g/dL Albumin/Globulin Ratio (1-3) Lipase (11.0-82.0) U/L Procalcitonin 1.6 H (<0.6) ng/mL Assess/Plan/Problems-Billing Assessment: Ms. Mccoy is a 62 yo female with a PMH of super morbid obesity who was admitted on 12/01/17 with severe sepsis secondary to panniculitis. - Patient Problems (1) Severe sepsis Comment: - Leukocytosis resolved, SBP 100. Lactic acid was normal on arrival. - Secondary to panniculitis. - BC negative thus far. (2) Panniculitis Comment: - Continue ceftriaxone. (3) Hypertension Comment: - SBP 100 - Hold spironolactone and lasix. (4) DVT prophylaxis (5) Full code status Status and Disposition: Inpatient. Anticipate discharge to home when medically stable.
[2017-12-02] MEDS: cefTRIAXone(*) 1 GM in NS 0.9% 50 ML* 50 ML IVPB SCH (17:07)
[2017-12-03] MEDS: NS 0.9% 1000 ML* 1,000 ML IV SCH ×2 (01:37→09:48)
[2017-12-03] MEDS: Omeprazole CAP* 20 MG PO SCH (08:56)
[2017-12-03] MEDS: Oxybutynin TAB* 5 MG PO SCH ×2 (08:56→12:42)
[2017-12-03] MEDS: EPINASTINE 0.05% BOTH EYES SCH (08:57)
[2017-12-03] MEDS: Nystatin TOP POWDER* 15 GM BTL TOPICAL SCH ×2 (08:58→12:43)
[2017-12-03] MEDS: Potassium Chloride LIQUID* 20 MEQ PACKET PO SCH (08:59)
[2017-12-03 11:25] LABS: ABS Basophils 0 10^3/ul (0-0.2); ABS Eosinophils 0.1 10^3/ul (0-0.6); ABS Lymphocytes 0.5 10^3/ul (1.0-4.8); ABS Monocytes 0.4 10^3/ul (0-0.8); ABS Neutrophils 4.9 10^3/ul (1.5-7.7); ABS Nucleated RBC 0 10^3/ul; Eosinophil % 1.4 % (0-6); Hematocrit 34 % (35-47); Hemoglobin 11.2 g/dl (12.0-16.0); Lymphocyte % 8.6 % (25-47); Mean Corpuscular HGB Conc 33 g/dl (31-36); Mean Corpuscular Hemoglobin 27 pg (27-31); Mean Corpuscular Volume 83 fL (80-97); Mean Platelet Volume 9.6 um3 (7.4-10.4); Nucleated Red Blood Cells % 0; Platelet Count 150 10^3/ul (150-450); Red Blood Count 4.09 10^6/ul (4.0-5.4); Red Cell Distribution Width 15 % (10.5-15); White Blood Count 5.9 10^3/ul (3.5-10.8)
[2017-12-03 12:01] VITALS: BP 129/46
--- NOTE | 2017-12-04 06:34 | DS ---
DISCHARGE SUMMARY: DATE OF ADMISSION: 12/01/17 DATE OF DISCHARGE: 12/03/17 ATTENDING PHYSICIAN: Iggy Fuentes MD * (dictated by Ayanna Be NP). PRIMARY CARE PROVIDER: Rolan Martel MD PRIMARY DIAGNOSES: 1. Panniculitis. 2. Sepsis secondary to panniculitis. SECONDARY DIAGNOSES: 1. Morbid obesity, BMI approximately 70. 2. Psoriatic arthritis. 3. Gastroesophageal reflux disease. 4. Overactive bladder. 5. Anxiety. STUDIES COMPLETED WHILE IN THE HOSPITAL: 1. She had a chest x-ray on 12/01/17. Radiologist's impression: No active cardiopulmonary disease. 2. She had an electrocardiogram on 12/01/17 which showed sinus rhythm, rate of 91. No ST changes. DISCHARGE MEDICATIONS: New Medications: 1. Vantin 400 mg p.o. q.12 hours. 2. Probiotic 1 cap p.o. daily x15 days. Continued Home Medications: 1. Potassium chloride 20 mEq p.o. daily. 2. Ditropan 5 mg p.o. t.i.d. 3. Omeprazole 20 mg p.o. daily. 4. Nystatin cream 1 topically b.i.d. 5. Mobic 7.5 mg p.o. b.i.d. with meals. 6. Lotrimin 2% topical t.i.d. 7. Ultravate 0.05 topically b.i.d. 8. Lasix 40 mg p.o. daily. HISTORY OF PRESENT ILLNESS AND HOSPITAL COURSE: Ms. Mccoy is a 62-year-old female with past medical history significant for morbid obesity with BMI of 70, psoriatic arthritis, GERD, overactive bladder, anxiety, and history of sepsis secondary to panniculitis, who states that she was in her usual state of health until 1 to 2 days ago when she developed increased redness on her pannus. The patient reports having a fever of 101 last evening. She reports chills. She denies chest pain, shortness of breath, nausea, vomiting, or diarrhea. Denies any abdominal pain, dysuria, or any urinary symptoms. The patient states for several months now she has been having very heavy vaginal bleeding. The patient states that she has gone several years without any menses. She reports workup with [facility] for this and has underwent biopsies and it is felt that her bleeding is secondary to her body producing estrogen secondary to her morbid obesity. She does report that in the past few weeks she had a urinary tract infection and was treated with antibiotics. The patient also reports swelling in her pannus and over the last few days increased redness and warmth, so she presented to the emergency room for further evaluation. While in the emergency room, the patient had lab work showing WBC of 17.4. She did not have an elevated lactic acid. She did receive 1 L of normal saline and Levaquin during her stay in the emergency room. She was hypotensive. We were asked to admit her for sepsis related to panniculitis. While in the hospital, patient received IV antibiotics, ceftriaxone, and her white count improved. Today, repeat white count was 5.9. She has been afebrile. She has no further complaints. The redness has improved to her pannus. She denies any chest pain or shortness of breath. Denies any nausea, vomiting, or abdominal pain. REVIEW OF SYSTEMS: The patient denies any fever, chills, nausea, vomiting, or diarrhea. Denies any abdominal pain. Denies any chest pain or shortness of breath. The patient reports that she is feeling well today. PHYSICAL EXAMINATION: Vital Signs: Temperature was 97.6, heart rate was 71, respirations 23, O2 saturation 97%, blood pressure 129/46. HEENT: Pupils are equal and reactive to light. Extraocular eye movements are intact. Respiratory : There is no accessory muscle use. Lungs are clear but diminished bilaterally to auscultation. Cardio-vascular: Heart regular rate and rhythm. S1 and S2 is present. There are no murmurs, rubs, or gallops. Abdomen: Obese , soft, round, nontender. Bowel sounds are present x4. Extremities: There is no lower extremity edema. Pedal pulses are +2 bilaterally. Musculoskeletal: There is no clubbing or cyanosis. She does have good strength in all 4 extremities. Neurological: The patient is alert and oriented x4. Skin: There is mild redness noted to the pannus with scaling. LABORATORY DATA: The patient's WBC's today were 5.9, H and H was 11.2 and 34. We did repeat CRP, which had decreased from 237.64 to 158.86. At this time, Ms. Mccoy is stable for discharge home. DISCHARGE PLAN: Ms. Mccoy will be discharged back home. Activity as tolerated. 1. Panniculitis. She should wash the area with mild soap and water daily. She will continue on Vantin 400 mg q.12 hours x12 more days. She will continue probiotic 1 tablet p.o. daily for 15 days. 2. Overactive bladder. She should continue her Ditropan as previously prescribed. 3. Gastroesophageal reflux disease. She should continue her omeprazole as previously prescribed. 4. Report of vaginal bleeding. The patient is currently being worked up by [facility] as an outpatient and currently her bleeding is suspected to be secondary to body producing estrogen due to obesity. FOLLOWUP: The patient should follow up with her primary care provider, Dr. Martel, in 4 to 7 days. The patient was instructed to return to the emergency room for any increased fever or chills, or increased redness to the pannus, or chest pain or shortness of breath, or any other concerning symptoms. This is a summarization of her hospitalization. For further details, please see the entire medical record. TIME SPENT: Time spent on this discharge was approximately 60 minutes, greater than half that time was spent with the patient discussing discharge plan and instructions. CONDITION ON DISCHARGE: Stable. AYANNA JOSE, ESTELA [id number]/[facility]PS #: [id number] MTDPilar
== END 2017-12-03 14:15 | disposition home or self-care (01) | DRG 720 ==
LOC: ED 13:59 → MED 16:03
PROVIDERS: ADMIT Internal Medicine; ATTEND Student in an Organized Health Care Education/Training Program
DX: A41.9 Sepsis, unspecified organism (principal); R17 Unspecified jaundice; Z68.45 Body mass index [BMI] 70 or greater, adult; M79.3 Panniculitis, unspecified; E66.01 Morbid (severe) obesity due to excess calories; L40.50 Arthropathic psoriasis, unspecified; K21.9 Gastro-esophageal reflux disease without esophagitis; N32.81 Overactive bladder; F41.9 Anxiety disorder, unspecified; N93.9 Abnormal uterine and vaginal bleeding, unspecified; M19.90 Unspecified osteoarthritis, unspecified site; R65.20 Severe sepsis without septic shock; I10 Essential (primary) hypertension; Z87.440 Personal history of urinary (tract) infections; Z90.49 Acquired absence of other specified parts of digestive tract; Z98.51 Tubal ligation status; Z80.0 Family history of malignant neoplasm of digestive organs; Z80.41 Family history of malignant neoplasm of ovary; Z80.3 Family history of malignant neoplasm of breast; Z81.1 Family history of alcohol abuse and dependence; Z87.891 Personal history of nicotine dependence; Z83.3 Family history of diabetes mellitus; Z83.1 Family history of other infectious and parasitic diseases
CPT/HCPCS: 36415; 71045; 80048; 80053; 81003; 81015; 82550; 83605; 83690; 83880; 84145; 84484; 85025; 85610; 85730; 86140; 87040; 87086; 93005; 99283; A9270-GY; J0696

== ENCOUNTER 2018-01-01 15:12 | Observation (INO) | payer BC ==
[2018-01-01] MEDS ORDERED: NS 0.9% 1000 ML* 1,000 ML IV ONE (15:33)
[2018-01-01] MEDS ORDERED: cefTRIAXone(*) 1 GM in NS 0.9% 50 ML* 50 ML IVPB ONE (15:48)
--- NOTE | 2018-01-01 16:11 | RAD ---
HISTORY: weak COMPARISONS: December 01, 2017 VIEWS: 1: frontal portable view of the chest at 3:49 PM FINDINGS: LINES AND TUBES: None. CARDIOMEDIASTINAL SILHOUETTE: The cardiomediastinal silhouette is normal for portable technique. PLEURA: The costophrenic angles are sharp. No pleural abnormalities are noted. LUNG PARENCHYMA: The lungs are clear. ABDOMEN: The upper abdomen is clear. There is no subphrenic gas. BONES AND SOFT TISSUES: No bone or soft tissue abnormalities are noted. IMPRESSION: NO ACTIVE CARDIOPULMONARY DISEASE.
[2018-01-01 16:16] LABS: Hematocrit 41 % (35-47); Hemoglobin 13.7 g/dl (12.0-16.0); Mean Corpuscular HGB Conc 33 g/dl (31-36); Mean Corpuscular Hemoglobin 27 pg (27-31); Mean Corpuscular Volume 81 fL (80-97); Mean Platelet Volume 9.5 um3 (7.4-10.4); Platelet Count 170 10^3/ul (150-450); Red Blood Count 5.13 10^6/ul (4.00-5.40); Red Cell Distribution Width 14 % (10.5-15); White Blood Count 21.8 10^3/ul (3.5-10.8)
[2018-01-01 16:20] LABS: INR 1.1 (0.77-1.02)
[2018-01-01 16:43] LABS: Monocytes % 1 % (0-7)
[2018-01-01 16:44] LABS: EGFR Non-African American 54.7 (>60)
[2018-01-01] MEDS ORDERED: Morphine VIAL* 4 MG/ML VIAL (1 ml vial) IV PRN (17:39)
[2018-01-01] MEDS ORDERED: Acetaminophen TAB* 325 MG PO PRN (17:39)
[2018-01-01] MEDS ORDERED: oxyCODONE/Acetamin 5/325 MG* TAB PO PRN (17:39)
[2018-01-01] MEDS ORDERED: Al Hydrox/Mg Hydrox/Simet LIQ* 30 ML UDC PO PRN (17:39)
--- NOTE | 2018-01-01 19:16 | ED ---
Davide Alexander Tariq, scribed for John Fonseca MD on 01/01/18 at 1641 . HPI Febrile Illness - HPI Summary HPI Summary: A 62 y/o pt DARA presents to the ED c/o fever. Initially, pt was going to come in to ED because of chills, however, her temperature increased to 103 F. In the ED, pt had a temperature of 98.4 F. She additionally notes fatigue. Pt denies any cough, chest congestion, N/V/D, ear pain, CP, abdominal pain or any urinary problems. - History of Current Complaint Chief Complaint: EDWeakness Time Seen by Provider: 01/01/18 15:40 Hx Obtained From: Patient Onset/Duration: Still Present Timing: Constant Current Severity: None Pain Intensity: 0 Pain Scale Used: 0-10 Numeric Aggravating Factors: Nothing Alleviating Factors: Nothing Associated Signs and Symptoms: Chills, Other: - Fatigue - Additional Pertinent History Primary Care Physician: [id number] - Allergy/Home Medications Allergies/Adverse Reactions: Allergies Allergy/AdvReac Type Severity Reaction Status Date / Time No Known Allergies Allergy Verified 12/06/15 09:20 PMH/Surg Hx/FS Hx/Imm Hx Endocrine/Hematology History: Reports: Other Endocrine/Hematological Disorders - Hx sepsis Denies: Hx Diabetes Musculoskeletal History: Reports: Hx Arthritis Sensory History: Reports: Hx Contacts or Glasses Denies: Hx Hearing Aid Opthamlomology History: Reports: Hx Contacts or Glasses - Surgical History Surgery Procedure, Year, and Place: 2008 Infectious Disease History: No Infectious Disease History: Denies: Hx of Known/Suspected MRSA, Traveled Outside the [place] in Last 30 Days - Family History Known Family History: Positive: Diabetes - Grandmother, Other - Mother - polio. Grandmother - cancer - Social History Alcohol Use: None Hx Substance Use: No Substance Use Type: Reports: None Hx Tobacco Use: No Smoking Status (MU): Never Smoked Tobacco Review of Systems Positive: Fever, Chills, Fatigue Negative: Ear Ache Positive: Other - NEGATIVE: Chest congestion. Negative: Chest Pain Negative: Cough Negative: Abdominal Pain, Vomiting, Diarrhea, Nausea Positive: no symptoms reported All Other Systems Reviewed And Are Negative: Yes Physical Exam - Summary Physical Exam Summary: General: Morbidly obese, no pain distress. Skin: warm, color reflects adequate perfusion, dry Head: normal Eyes: EOMI, SANDRA ENT: normal Neck: supple, nontender Respiratory: CTA, breath sounds present Cardiovascular: RRR Abdomen: soft, nontender Bowel: present Musculoskeletal: normal, strength/ROM intact Neurological: sensory/motor intact, A&O x3 Psychological: affect/mood appropriate Triage Information Reviewed: Yes Vital Signs On Initial Exam: Initial Vitals Temp Pulse Resp BP Pulse Ox 98.4 F 92 20 104/72 95 01/01/18 15:29 01/01/18 15:29 01/01/18 15:29 01/01/18 15:29 01/01/18 15:29 Vital Signs Reviewed: Yes Skin: Positive: Erythema @ - [facility] - Vital Signs Vital Signs Temp Pulse Resp BP Pulse Ox 01/01/18 15:29 98.4 F 92 20 104/72 95 - Laboratory Lab Results: Lab Results 01/01/18 01/01/18 Range/Units 16:01 16:01 WBC 21.8 H (3.5-10.8) 10^3/ul RBC 5.13 (4.00-5.40) 10^6/ul Hgb 13.7 (12.0-16.0) g/dl Hct 41 (35-47) % MCV 81 (80-97) fL MCH 27 (27-31) pg MCHC 33 (31-36) g/dl RDW 14 (10.5-15) % Plt Count 170 (150-450) 10^3/ul MPV 9.5 (7.4-10.4) um3 Neut % (Auto) Pending Lymph % (Auto) Pending [place] % (Auto) Pending Eos % (Auto) Pending Baso % (Auto) Pending Absolute Neuts (auto) Pending Absolute Lymphs (auto) Pending Absolute Monos (auto) Pending Absolute Eos (auto) Pending Absolute Basos (auto) Pending Absolute Nucleated RBC Pending Nucleated RBC % Pending INR (Anticoag Therapy) 1.10 H (0.77-1.02) APTT 28.9 (26.0-36.3) seconds Result Diagrams: 01/01/18 16:01 01/01/18 16:01 Lab Statement: Any lab studies that have been ordered have been reviewed, and results considered in the medical decision making process. - Radiology CXR Xray Interpretation: No Acute Changes Radiology Interpretation Completed By: Radiologist - No active cardiopulmonary disease. ED physician reviewed this radiology report. - EKG 1608 Cardiac Rate: NL - 79 BPM EKG Rhythm: Sinus Rhythm ST Segment: Normal Ectopy: None Course/Dx - Course Course Of Treatment: ADMIT HOSPITALIST. LESS THAN 30ML/KG IVF GIVEN DUE TO HX OF CHF. CRITICAL CARE TIME LESS THAN 30 MINUTES. - Diagnoses Provider Diagnoses: Panniculitis Discharge - Sign-Out/Discharge Documenting (check all that apply): Discharge/Admit/Transfer - Admit - Discharge Plan Condition: Stable Disposition: ADMITTED TO [facility] Referrals: Mack Martel MD [Primary Care Provider] - - Billing Disposition and Condition Condition: STABLE Disposition: Admitted to [facility] The documentation as recorded by the Davide baer Tariq accurately reflects the service I personally performed and the decisions made by me, John Fonseca MD.
[2018-01-01] MEDS: NS 0.9% 1000 ML* 1,000 ML IV ONE ×2 (19:55→21:54)
[2018-01-01] MEDS: Docusate CAP* 100 MG PO SCH (20:00)
[2018-01-01] MEDS: Nystatin CREAM* 30 GM TOPICAL SCH (21:08)
--- NOTE | 2018-01-01 21:24 | HP ---
CC: Dr. Martel HISTORY AND PHYSICAL: DATE OF ADMISSION: 01/01/18 PRIMARY CARE PROVIDER: Dr. Martel. CHIEF COMPLAINT: Fever. HISTORY OF PRESENT ILLNESS: Precious Mccoy is a 62-year-old female with history of morbid obesity, BMI over 70, who has history of panniculitis for which she was hospitalized exactly a month ago, who presented to the hospital complaining of feeling weak and temperature of 103 degrees at home. The patient was noted to have panniculitis again during evaluation in the emergency department and she is going to be placed on overnight observation. PAST MEDICAL AND SURGICAL HISTORY: 1. Super morbid obesity with BMI over approximately 70. 2. History of psoriasis with psoriatic arthritis. 3. Gastroesophageal reflux disease. 4. History of overactive bladder. 5. Anxiety. 6. History of panniculitis in the past. 7. History of cholecystectomy. 8. Tubal ligation. MEDICATIONS: At home include: 1. Calcipotriene 0.005% topical b.i.d. 2. Elestat 1 drop both eyes daily. 3. Halobetasol propionate 0.05% topically b.i.d. 4. Furosemide 40 mg daily. 5. Omeprazole 20 mg daily. 6. Nystatin cream 1 application b.i.d. 7. Lotrimin cream 2% application 3 times a day. 8. Meloxicam 7.5 mg b.i.d. with meals. 9. Potassium chloride 20 mEq daily. 10. Oxybutynin 5 mg 3 times a day. ALLERGIES: No known drug allergies. FAMILY HISTORY: Father in his 60 secondary to gastric cancer and he had history of alcoholism. One sister has history of breast cancer and another sister with ovarian cancer. SOCIAL HISTORY: The patient lives with her , who helps her when she needs to use the bathroom, but she states that she ambulates by herself. She needs also help with lifting her pannus when she sits by the table to eat. She quit smoking 40 years ago. She denies any alcohol or recreational drug use. Her , Jeffrey, is her surrogate. REVIEW OF SYSTEMS: Please see history of present illness. The patient stated that it started all of a sudden, she had a temperature of 103 degrees and mild nausea, but no vomiting. She did not notice any changes on her skin until she was evaluated in the emergency department. All the remaining 12 systems were reviewed with the patient and were otherwise negative. PHYSICAL EXAMINATION GENERAL: The patient is a very pleasant 62-year-old female, who is in no acute distress. The patient is alert and oriented x3. VITAL SIGNS: Blood pressure of 104/72, heart rate of 92 and regular, respiratory rate 20, oxygen saturation 95% on room air, temperature 98.4. Her weight is 397 pounds. Her height is 5 feet 2 inches and BMI is 72. HEENT: Head: Atraumatic, normocephalic. Eyes: Pupils are equal, reactive to light and accommodation. Oropharynx clear. Mucosa is moist. NECK: Supple. No JVD. No bruits bilaterally. RESPIRATORY: Clear to auscultation bilaterally. CARDIOVASCULAR: Regular rate and rhythm. No murmur. ABDOMEN: Soft, nontender. Bowel sounds present in all 4 quadrants. EXTREMITIES: There is trace bilateral non-pitting edema. Pulses are +2 bilaterally. There is no clubbing or cyanosis. NEURO: Speech clear. Cranial nerves II through XII grossly intact. Motor strength is 5/5 bilaterally. PSYCHIATRIC: Oriented x3 with no evidence of anxiety or depression. SKIN: On evaluation of the skin of the abdomen, the patient's pannus is very large. She actually has to have at least 1 person help to lift it. The area of the right lateral surface all the way through the umbilical area is noted with cellulitis and streaking. She has some dry skin that appears to be psoriasis like on the bottom of her pannus that does not appear to be affected by the cellulitis. There are no open areas or wounds noted. DIAGNOSTIC STUDIES/LAB DATA: Show white blood cell count of 21.8, hemoglobin of 13.7, hematocrit of 41, and platelets of 170. There were 9% bands and 89% of neutrophils. Sodium was 134, potassium 4.0, chloride 97, carbon dioxide 27, BUN 12, creatinine 1.02. Liver function tests unremarkable with mild elevation of alkaline phosphatase of 106. C-reactive protein was 71. Brain natriuretic peptide was 35 and lactic acid of 2.5. The patient's portable chest x-ray, impression: "No active cardiopulmonary disease." ASSESSMENT AND PLAN: 1. Sepsis due to panniculitis. Although the patient is septic at admission due to her using chronically diuretics, I will not give her a full weight based bolus dose of intravenous fluids, also due to her super morbid obesity, it would not be appropriate and she would likely be in fluid overload. At that point, she is going to receive a total of 2 L of intravenous fluids and continue with normal saline on an hourly drip at 100 mL/hour later on. I will restart the patient's diuretics tomorrow. She is going to be placed on ceftriaxone since a month ago, she responded very well to it. I also talked about possibility of suppressive antibiotic treatment in this patient, who has a very large pannus and possibility of injuring it and causing a port of infection is very easy and difficult to prevent. 2. For her history of urinary problems, she is going to be continued on her oxybutynin at home. 3. For history of psoriasis and psoriatic arthritis, the patient is going to be continued on her Mobic. 4. DVT prophylaxis. The patient is going to be placed on heparin subcutaneously. 5. The patient's code status is full. Her surrogate is her . TIME SPENT: Approximately 65 minutes was spent on admission of this patient, more than half that time was spent [id number] with the patient during the interview and physical exam. [id number]/[facility] #: [id number] OLAF
[2018-01-01] MEDS: Heparin VIAL(*) 5000 UNITS/ML VIAL (FIVE THOUSAND) SUBCUT SCH (22:00)
[2018-01-01] MEDS: Oxybutynin TAB* 5 MG PO SCH (22:00)
[2018-01-01] MEDS: NS 0.9% 1000 ML* 1,000 ML IV SCH (23:17)
[2018-01-02] MEDS: Heparin VIAL(*) 5000 UNITS/ML VIAL (FIVE THOUSAND) SUBCUT SCH (06:00)
[2018-01-02 07:08] LABS: ABS Basophils 0 10^3/ul (0-0.2); ABS Eosinophils 0 10^3/ul (0-0.6); ABS Lymphocytes 0.8 10^3/ul (1.0-4.8); ABS Monocytes 0.5 10^3/ul (0-0.8); ABS Neutrophils 15.4 10^3/ul (1.5-7.7); ABS Nucleated RBC 0 10^3/ul; Eosinophil % 0 % (0-6); Hematocrit 36 % (35-47); Hemoglobin 11.8 g/dl (12.0-16.0); Lymphocyte % 4.7 % (25-47); Mean Corpuscular HGB Conc 33 g/dl (31-36); Mean Corpuscular Hemoglobin 27 pg (27-31); Mean Corpuscular Volume 81 fL (80-97); Mean Platelet Volume 9.8 um3 (7.4-10.4); Nucleated Red Blood Cells % 0; Platelet Count 145 10^3/ul (150-450); Red Blood Count 4.41 10^6/ul (4.00-5.40); Red Cell Distribution Width 14 % (10.5-15); White Blood Count 16.7 10^3/ul (3.5-10.8)
[2018-01-02 07:15] LABS: EGFR Non-African American 70.4 (>60)
[2018-01-02 07:28] VITALS: BP 120/58
[2018-01-02] MEDS ORDERED: Omeprazole CAP* 20 MG PO SCH (07:30)
[2018-01-02] MEDS ORDERED: CMCS - Meloxicam(NF) 7.5 MG TAB PO SCH (08:00)
[2018-01-02] MEDS: Docusate CAP* 100 MG PO SCH (08:03)
[2018-01-02] MEDS: Oxybutynin TAB* 5 MG PO SCH (08:04)
[2018-01-02] MEDS: Nystatin CREAM* 30 GM TOPICAL SCH (08:05)
[2018-01-02 08:33] LABS: Urine Appearance Clear; Urine Blood 2+ (Negative); Urine Color Yellow; Urine Ketones Negative (Negative); Urine Protein Negative (Negative); Urine Specific Gravity 1.004 (1.010-1.030); Urine Urobilinogen Negative (Negative)
[2018-01-02] MEDS ORDERED: Potassium Chloride LIQUID* 20 MEQ PACKET PO SCH (09:00)
[2018-01-02] MEDS ORDERED: Furosemide TAB* 40 MG PO SCH (09:00)
[2018-01-02] MEDS: NS 0.9% 1000 ML* 1,000 ML IV SCH (09:37)
--- NOTE | 2018-01-02 14:46 | DS ---
CC: Dr. Montilla; Dr. Martel.* DISCHARGE SUMMARY: DATE OF ADMISSION: 12/31/17. DATE OF DISCHARGE: 01/02/18. PRIMARY CARE PROVIDER: Dr. Martel. DISCHARGE DIAGNOSIS: Sepsis due to panniculitis. SECONDARY DIAGNOSES: 1. Morbid obesity with BMI over 70. 2. History of psoriasis with psoriatic arthritis. 3. Gastroesophageal reflux disease. 4. History of overactive bladder. 5. Anxiety. 6. History of recurrent panniculitis. 7. Cholecystectomy. 8. Tubal ligation. MEDICATIONS AT DISCHARGE: Include 1. Cefdinir 300 mg p.o. b.i.d. for a total of 10 days. The remaining medications are unchanged and include: 1. Calcipotriene 0.005% topical b.i.d. 2. Elestat 1 drop both eyes daily. 3. Halobetasol propionate 0.05% topically b.i.d. 4. Furosemide 40 mg b.i.d. 5. Omeprazole 20 mg p.o. daily. 6. Nystatin cream 1 application b.i.d. 7. Lotrimin cream 2% application 3 times a day. 8. Meloxicam 7.5 mg b.i.d. with meals. 9. Potassium chloride 20 mEq b.i.d. 10. Oxybutynin 5 mg 3 times a day. LABORATORY DATA: On the day of discharge included: White blood cell count 16.7 , hemoglobin 11.8, hematocrit 36, platelets 145,000. Sodium 135, potassium 3.7 , chloride 103, carbon dioxide 26, BUN 11, creatinine 0.82. Blood cultures had not been reported yet by the time of discharge. HOSPITALIZATION COURSE: Precious Mccoy is a 62-year-old female who has a history of supramorbid obesity and recurrent panniculitis. Her last bout of panniculitis was exactly a month ago. She presented on 12/31/17 with a fever of 103 degrees documented at home and not feeling well. She actually did not even notice that she had another cellulitis on her pannus. She usually has problems with ambulation due to that and she needs her 's help with using bathroom and sitting down to hold her pannus. The patient was septic on admission and was placed on ceftriaxone. She did very well. At the time of discharge, the cellulitic area on her abdomen has definitely decreased. She had been afebrile for the time of her hospital stay. She still feels weak due to her ongoing infection, but she is ready to go home. She is going to be discharged home on third generation cephalosporin as she did last time and she did very well on it. We discussed with the patient that if her panniculitis continues to recur that she could see Dr. Montilla from Infectious Disease in consultation for a consideration of long-term suppressive antibiotic therapy. At discharge, the patient's physical exam was unchanged from admission except from that the area of cellulitis is definitely decreased. Please note that this is a short summary of the patient's hospital stay. Please refer to further medical records for details. [id number]/[facility] #: [id number] OLAF
[2018-01-02] MEDS ORDERED: cefTRIAXone(*) 1 GM in NS 0.9% 50 ML* 50 ML IVPB SCH (16:00)
== END 2018-01-02 11:40 | disposition home or self-care (01) ==
LOC: ED 15:12 → MED 17:39
PROVIDERS: ADMIT Internal Medicine; ATTEND Internal Medicine
DX: A41.9 Sepsis, unspecified organism (principal); M79.3 Panniculitis, unspecified; E66.01 Morbid (severe) obesity due to excess calories; L40.9 Psoriasis, unspecified; K21.9 Gastro-esophageal reflux disease without esophagitis; N32.81 Overactive bladder; F41.9 Anxiety disorder, unspecified; Z79.899 Other long term (current) drug therapy; Z87.891 Personal history of nicotine dependence
CPT/HCPCS: 36415; 71045; 80048; 80053; 81003; 81015; 83605; 83690; 83880; 84484; 85025; 85610; 85730; 86140; 87040; 93005; 96365; 96372; 99284; A9270-GY; G0378; J0696; J1644

== ENCOUNTER 2020-03-10 08:40 | Observation (INO) ==
[2020-03-10] MEDS ORDERED: cefTRIAXone 1 gm/50 mL NS BAG 1 GM/50 ML BAG IV ONE (09:00)
[2020-03-10] MEDS ORDERED: NS 0.9% 1000 ml BAG 1,000 ML IV ONE ×2 (09:06→10:39)
[2020-03-10 09:26] LABS: ABS Lymphocytes 0.2 10^3/ul (1.0-4.8); ABS Monocytes 0.4 10^3/ul (0-0.8); ABS Neutrophils 19.2 10^3/ul (1.5-7.7); Eosinophil % 0.1 %; Hematocrit 41 % (35-47); Hemoglobin 13.4 g/dL (12.0-16.0); Lymphocyte % 1.2 %; Mean Corpuscular HGB Conc 33 g/dL (31-36); Mean Corpuscular Hemoglobin 25 pg (27-31); Mean Corpuscular Volume 77 fL (80-97); Mean Platelet Volume 9.3 fL (7.4-10.4); Platelet Count 174 10^3/uL (150-450); Red Cell Distribution Width 16 % (10-15); White Blood Count 19.9 10^3/uL (3.5-10.8)
[2020-03-10 09:36] LABS: Activated Partial Thrombo Time 27.6 seconds (26.0-38.0); INR 1.17 (0.82-1.09)
[2020-03-10 09:41] LABS: Albumin 3.9 g/dL (3.2-5.2); Albumin/Globulin Ratio 1.1 (1-3); BUN/Creatinine Ratio 12.2 (8-20); C Reactive Protein 33.49 mg/L (<8.01); Calcium 8.9 mg/dL (8.6-10.3); EGFR Non-African American 62.8 (>60); Globulin 3.4 g/dL (2-4); Potassium 3.9 mmol/L (3.5-5.0); Total Bilirubin 0.8 mg/dL (0.2-1.0); Total Protein 7.3 g/dL (6.4-8.9)
[2020-03-10 09:43] LABS: Troponin I 0.01 ng/mL (<0.03)
[2020-03-10] MEDS ORDERED: NS 0.9% 500 ml BAG 500 ML IV SCH (10:00)
[2020-03-10 10:42] LABS: Urine Appearance Cloudy; Urine Bilirubin Negative (Negative); Urine Blood 1+ (Negative); Urine Color Amber; Urine Glucose Negative (Negative); Urine Ketones Negative (Negative); Urine Nitrite Negative (Negative); Urine Protein Negative (Negative); Urine Urobilinogen Negative (Negative)
[2020-03-10 10:50] LABS: Urine Bacteria Absent (Absent); Urine Red Blood Cell 3+(>10/hpf) (Absent); Urine Squamous Epithelial Cell Present (Absent); Urine White Blood Cell 3+(>20/hpf) (Absent)
[2020-03-10] MEDS: Heparin 5000 UNITS/ML 1 mL VIAL SUBCUT SCH ×2 (13:57→20:22)
[2020-03-10] MEDS: MICONAZOLE NITRATE TOPICAL SCH (20:22)
[2020-03-10] MEDS: Epinastine 0.05% OPHTH(NF) 5 ML BTL BOTH EYES SCH (20:44)
[2020-03-11 03:30] LABS: ABS Basophils 0.1 10^3/ul (0-0.2); ABS Lymphocytes 0.8 10^3/ul (1.0-4.8); ABS Monocytes 0.7 10^3/ul (0-0.8); ABS Neutrophils 14.3 10^3/ul (1.5-7.7); Hematocrit 34 % (35-47); Hemoglobin 11.3 g/dL (12.0-16.0); Lymphocyte % 4.9 %; Mean Corpuscular HGB Conc 33 g/dL (31-36); Mean Corpuscular Hemoglobin 26 pg (27-31); Mean Corpuscular Volume 76 fL (80-97); Mean Platelet Volume 9.1 fL (7.4-10.4); Platelet Count 168 10^3/uL (150-450); Red Blood Count 4.45 10^6 /uL (3.70-4.87); Red Cell Distribution Width 16 % (10-15); White Blood Count 15.8 10^3/uL (3.5-10.8)
[2020-03-11 03:52] LABS: Albumin 3.3 g/dL (3.2-5.2); BUN/Creatinine Ratio 13.3 (8-20); Calcium 8.4 mg/dL (8.6-10.3); EGFR African American 83.5 (>60); Potassium 3.6 mmol/L (3.5-5.0); Total Protein 6.3 g/dL (6.4-8.9)
[2020-03-11 03:53] LABS: Albumin/Globulin Ratio 1.1 (1-3); Total Bilirubin 0.7 mg/dL (0.2-1.0)
[2020-03-11] MEDS: Heparin 5000 UNITS/ML 1 mL VIAL SUBCUT SCH ×3 (05:59→20:08)
[2020-03-11] MEDS ORDERED: EPINASTINE 0.05% BOTH EYES SCH (09:00)
[2020-03-11] MEDS: cefTRIAXone 1 gm/50 mL NS BAG 1 GM/50 ML BAG IVPB SCH (09:08)
[2020-03-11] MEDS: Epinastine 0.05% OPHTH(NF) 5 ML BTL BOTH EYES SCH ×2 (09:09→20:07)
[2020-03-11] MEDS: MICONAZOLE NITRATE TOPICAL SCH ×2 (09:09→20:07)
[2020-03-12] MEDS: Heparin 5000 UNITS/ML 1 mL VIAL SUBCUT SCH ×2 (05:59→13:15)
[2020-03-12] MEDS: cefTRIAXone 1 gm/50 mL NS BAG 1 GM/50 ML BAG IVPB SCH (10:45)
[2020-03-12] MEDS: MICONAZOLE NITRATE TOPICAL SCH (11:15)
[2020-03-12] MEDS: Epinastine 0.05% OPHTH(NF) 5 ML BTL BOTH EYES SCH (11:25)
[2020-03-12 13:57] VITALS: BP 147/62
== END 2020-03-12 14:45 | disposition home or self-care (01) ==
LOC: ED 08:40 → MED 08:40
PROVIDERS: ADMIT Internal Medicine; ATTEND Student in an Organized Health Care Education/Training Program

== ENCOUNTER 2023-11-07 08:36 | Inpatient (IN) ==
[2023-11-07 09:48] LABS: ABS Lymphocytes 0.3 10^3/uL (1.0-4.8); ABS Monocytes 0.7 10^3/uL (0.0-0.9); ABS Neutrophils 8.6 10^3/uL (1.5-7.6); ABS Nucleated RBC 0.01 10^3/ul; Eosinophil % 0.2 %; Hematocrit 39.3 % (35-45); Hemoglobin 12.5 g/dL (11.5-14.3); Lymphocyte % 3.4 %; Mean Corpuscular Hemoglobin 24.5 pg (27-33); Mean Corpuscular Hgb Conc 31.8 g/dL (31-36); Mean Corpuscular Volume 77.2 fL (80-97); Mean Platelet Volume 8.5 fL (7.5-11.2); Nucleated Red Blood Cells % 0.1 %/100WBC (0.0-0.8); Platelet Count 185 10^3/uL (150-450); Red Blood Count 5.09 10^6/uL (3.63-4.92); White Blood Count 9.6 10^3/uL (3.8-11.8)
[2023-11-07 10:39] LABS: Albumin 3.7 g/dL (3.2-5.2); Albumin/Globulin Ratio 1.3 (1-3); Calcium 8.4 mg/dL (8.6-10.3); Creatinine, Serum 0.85 mg/dL (0.51-0.95); Globulin 2.9 g/dL (2-4); Potassium 4.1 mmol/L (3.5-5.0); Total Bilirubin 0.6 mg/dL (0.2-1.0); Total Protein 6.6 g/dL (6.4-8.9); eGFR CKD-EPI 74.1 (>60)
[2023-11-07 11:16] LABS: High Sensitivity Troponin 1 Hr 8 pg/mL (<15)
[2023-11-07] MEDS: Furosemide 40 mg/4 ml IV VIAL IV ONE (14:10)
[2023-11-07] MEDS: diazePAM INJ CARPUJECT 5 MG/ML SYRINGE IV ONE (15:07)
[2023-11-07] MEDS: Iohexol 350 (CONTRAST) 500 ML MDV IV ONE (15:28)
[2023-11-07] MEDS: Enoxaparin 40 MG/0.4 ML SYR SUBCUT SCH (21:30)
[2023-11-08 06:10] LABS: Hematocrit 36.4 % (35-45); Hemoglobin 11.4 g/dL (11.5-14.3); Mean Corpuscular Hemoglobin 24.4 pg (27-33); Mean Corpuscular Hgb Conc 31.5 g/dL (31-36); Mean Corpuscular Volume 77.5 fL (80-97); Mean Platelet Volume 8.4 fL (7.5-11.2); Platelet Count 179 10^3/uL (150-450); Red Blood Count 4.69 10^6/uL (3.63-4.92); Red Cell Distribution Width 19.2 % (12-17); White Blood Count 11.2 10^3/uL (3.8-11.8)
[2023-11-08 06:50] LABS: Anion Gap 7 mmol/L (2-16); Blood Urea Nitrogen 10 mg/dL (6-24); CO2 Carbon Dioxide 34 mmol/L (22-32); Calcium 7.6 mg/dL (8.6-10.3); Chloride 97 mmol/L (101-111); Creatinine, Serum 0.77 mg/dL (0.51-0.95); Glucose 106 mg/dL (70-100); Sodium 138 mmol/L (135-145); eGFR CKD-EPI 83.5 (>60)
[2023-11-08] MEDS: PTO: BUDESONIDE/GLYCOPYR/FORMOTEROL MDI (NF) INH SCH (07:03)
[2023-11-08] MEDS: CMCS: Solifenacin 5 mg TAB (NF) PO SCH (07:54)
[2023-11-08] MEDS: NF: Vibegron 75 MG TAB (NF) PO SCH (07:56)
[2023-11-08] MEDS ORDERED: Sulfur Hexaflouride MICROSPHR 25 MG VIAL ONE (10:33)
[2023-11-08] MEDS: Potassium Chlor 20 meq TAB.ER PO ONE (11:38)
[2023-11-08] MEDS: Furosemide 40 mg/4 ml IV VIAL IV ONE (11:38)
[2023-11-08] MEDS: Nystatin TOP POWDER 15 GM BTL TOPICAL SCH (21:41)
[2023-11-09 06:10] LABS: ABS Basophils 0.1 10^3/uL (0.0-0.1); ABS Lymphocytes 0.4 10^3/uL (1.0-4.8); ABS Monocytes 0.8 10^3/uL (0.0-0.9); ABS Neutrophils 9.5 10^3/uL (1.5-7.6); ABS Nucleated RBC 0.02 10^3/ul; Eosinophil % 0.1 %; Hematocrit 39.2 % (35-45); Hemoglobin 12.5 g/dL (11.5-14.3); Lymphocyte % 3.4 %; Mean Corpuscular Hemoglobin 24.8 pg (27-33); Mean Corpuscular Volume 77.4 fL (80-97); Mean Platelet Volume 8.5 fL (7.5-11.2); Nucleated Red Blood Cells % 0.2 %/100WBC (0.0-0.8); Platelet Count 221 10^3/uL (150-450); Red Blood Count 5.06 10^6/uL (3.63-4.92); Red Cell Distribution Width 19.1 % (12-17); White Blood Count 10.7 10^3/uL (3.8-11.8)
[2023-11-09 06:27] LABS: Calcium 8.6 mg/dL (8.6-10.3); Creatinine, Serum 0.89 mg/dL (0.51-0.95); Magnesium 2.1 mg/dL (1.9-2.7); Potassium 3.8 mmol/L (3.5-5.0); eGFR CKD-EPI 70.1 (>60)
[2023-11-09 16:24] LABS: TSH Ultra Thyroid Stim Horm 8.7 mcIU/mL (0.34-5.60)
[2023-11-10 05:58] LABS: ABS Basophils 0.1 10^3/uL (0.0-0.1); ABS Eosinophils 0.1 10^3/uL (0.0-0.5); ABS Lymphocytes 0.3 10^3/uL (1.0-4.8); ABS Monocytes 0.8 10^3/uL (0.0-0.9); Eosinophil % 0.7 %; Hematocrit 38.5 % (35-45); Hemoglobin 12.2 g/dL (11.5-14.3); Lymphocyte % 3.9 %; Mean Corpuscular Hemoglobin 24.6 pg (27-33); Mean Corpuscular Hgb Conc 31.8 g/dL (31-36); Mean Corpuscular Volume 77.4 fL (80-97); Mean Platelet Volume 8.5 fL (7.5-11.2); Nucleated Red Blood Cells % 0.1 %/100WBC (0.0-0.8); Platelet Count 191 10^3/uL (150-450); Red Blood Count 4.97 10^6/uL (3.63-4.92); Red Cell Distribution Width 19.2 % (12-17); White Blood Count 8.3 10^3/uL (3.8-11.8)
[2023-11-10 06:26] LABS: Calcium 8.6 mg/dL (8.6-10.3); Creatinine, Serum 0.87 mg/dL (0.51-0.95); Potassium 3.7 mmol/L (3.5-5.0); eGFR CKD-EPI 72.1 (>60)
[2023-11-10] MEDS: Metoprolol Tartrate 5 mg VIAL 5 ml VIAL (1 mg/ml) IV ONE (07:45)
[2023-11-11 05:48] VITALS: BP 139/67
== END 2023-11-11 11:15 | disposition home or self-care (01) | DRG 291 ==
LOC: EDHOLD 08:36 → ED 08:36 → SUATTDRO 18:37 → MEDTELE 11-08 14:19 → SUATTDRO 11-08 19:00
PROVIDERS: ADMIT Internal Medicine; ATTEND Student in an Organized Health Care Education/Training Program

== ENCOUNTER 2023-11-15 10:17 | Inpatient (IN) ==
[2023-11-15] MEDS ORDERED: methylPREDNISolone SOD SUCC 125 mg 2 ML VIAL ONE ×2 (10:18→10:57)
[2023-11-15] MEDS ORDERED: EPINEPHrine SYR 0.1MG/ML 10 ml SYRINGE IV ONE (10:18)
[2023-11-15] MEDS ORDERED: Norepinephrine IV 1 MG/ML 4 ML VIAL ONE (10:18)
[2023-11-15] MEDS: Norepinephrine *QUAD STRENGTH* 16 mg/250 mL NS PREMIX (ICU ONLY) IV SCH (10:42)
[2023-11-15] MEDS ORDERED: Norepinephrine 4 MG/250mL D5W 4,000 MCG/250 ML BAG IV ONE (10:49)
[2023-11-15] MEDS ORDERED: Albuterol 2.5mg/3 ml (0.083%) NEB.SOLN INH ONE (10:50)
[2023-11-15 10:56] LABS: Hemoglobin 14.1 g/dL (11.5-14.3); Mean Corpuscular Hemoglobin 24.5 pg (27-33); Mean Corpuscular Hgb Conc 30.6 g/dL (31-36); Mean Corpuscular Volume 80.2 fL (80-97); Mean Platelet Volume 9.3 fL (7.5-11.2); Platelet Count 263 10^3/uL (150-450); Red Blood Count 5.73 10^6/uL (3.63-4.92); Red Cell Distribution Width 20.2 % (12-17); White Blood Count 20.7 10^3/uL (3.8-11.8)
[2023-11-15] MEDS ORDERED: Albuterol/Ipratropium NEB.SOL (2.5/0.5 MG) 3 ML NEB.SOLN ONE (11:27)
[2023-11-15] MEDS: fentaNYL INFUSION 50 mcg/mL VL 2,500 MCG/50 ML VIAL IV SCH (11:30)
[2023-11-15] MEDS: Albuterol/Ipratropium NEB.SOL (2.5/0.5 MG) 3 ML NEB.SOLN INH ONE (11:46)
[2023-11-15] MEDS: Midazolam 2 mg/2 ml VIAL 1 mg/ml 2 ml VIAL (2 mg) IV SLOW PU ONE ×2 (11:47→11:50)
[2023-11-15] MEDS: Midazolam PREMIXBAG 1 MG/ML NS 100 ML IV SCH (12:00)
[2023-11-15] MEDS ORDERED: Enoxaparin 40 MG/0.4 ML SYR SUBCUT SCH (12:00)
[2023-11-15 12:22] LABS: ABS Lymphocytes 1.3 10^3/uL (1.0-4.8); ABS Monocytes 1.9 10^3/uL (0.0-0.9); ABS Neutrophils 17.5 10^3/uL (1.5-7.6); ABS Nucleated RBC 0.19 10^3/ul; Anisocytosis 2+; Eosinophil % 0.2 %; Lymphocyte % 6.2 %; Nucleated Red Blood Cells % 0.9 %/100WBC (0.0-0.8); Polychromasia 1+
[2023-11-15] MEDS: Norepinephrine 16 MG/250mL NS 16,000 MCG/250 ML BAG IV SCH (12:30)
[2023-11-15] MEDS: Rocuronium 50 mg VIAL 10 mg/ml 5 ml VIAL (50 mg) IV ONE (12:30)
[2023-11-15 13:50] LABS: INR 2.46 (0.83-1.13)
[2023-11-15 13:59] LABS: High Sensitivity Troponin 1 Hr 41 pg/mL (<15)
[2023-11-15] MEDS ORDERED: Vancomycin per Pharmacy 1 EA NOTE FOLLOW UP SCH (14:00)
[2023-11-15] MEDS ORDERED: Zosyn per Pharmacy NOTE FOLLOW UP SCH (14:00)
[2023-11-15] MEDS: Albuterol/Ipratropium NEB.SOL (2.5/0.5 MG) 3 ML NEB.SOLN INH SCH (14:06)
[2023-11-15 14:40] VITALS: BP 133/57
[2023-11-15 15:18] LABS: ALT 442 U/L (7-52); Acetaminophen < 15 mcg/mL; Albumin 3.5 g/dL (3.2-5.2); Albumin/Globulin Ratio 1.3 (1-3); Alcohol, S < 13 mg/dL (<13); Alkaline Phosphatase 254 U/L (35-149); Anion Gap 16 mmol/L (2-16); Blood Urea Nitrogen 24 mg/dL (6-24); CO2 Carbon Dioxide 26 mmol/L (22-32); Calcium 8.3 mg/dL (8.6-10.3); Chloride 88 mmol/L (101-111); Creatinine, Serum 1.36 mg/dL (0.51-0.95); Globulin 2.6 g/dL (2-4); Glucose 226 mg/dL (70-100); Salicylate < 2.50 mg/dL (<30); Sodium 130 mmol/L (135-145); TSH Ultra Thyroid Stim Horm 8.21 mcIU/mL (0.34-5.60); Total Bilirubin 1.1 mg/dL (0.2-1.0); Total Protein 6.1 g/dL (6.4-8.9); eGFR CKD-EPI 42.2 (>60)
[2023-11-15] MEDS: Rocuronium 50 mg VIAL 10 mg/ml 5 ml VIAL (50 mg) ONE (16:08)
[2023-11-15] MEDS: Midazolam 10 mg/10 ml VIAL 1 mg/ml 10 ml VIAL (10 mg) ONE (16:09)
[2023-11-15] MEDS: Midazolam 2 mg/2 ml VIAL 1 mg/ml 2 ml VIAL (2 mg) ONE (16:09)
[2023-11-15] MEDS: Piperacillin/Tazobac 3.375 BAG 3.375 GM/100 ML BAG IV ONE (16:17)
[2023-11-15] MEDS: EPINEPHrine 1 MG/ML MDV 5 MG in D5W 250 ml BAG 245 ML IV SCH (16:17)
[2023-11-15] MEDS: Vancomycin 1,000 MG in NS 0.9% 250 ml 250 ML IVPB ONE ×2 (16:17→18:11)
[2023-11-15 16:49] LABS: Resp Rate 24
[2023-11-15 16:50] LABS: PCO2 Arterial 71 mmHg (35-45); PO2 Arterial 93 mmHg (80-100)
[2023-11-15] MEDS: Chlorhexidine MOUTHWASH 0.12% 15 ML UDC TOPICAL SCH (17:11)
[2023-11-15] MEDS: Famotidine IV 10 MG/ML 2 ml VIAL (20 mg) IV SLOW PU SCH (17:12)
[2023-11-15] MEDS: Miconazole 2% Top Powder BTL TOPICAL SCH (18:11)
[2023-11-15] MEDS: Enoxaparin 40 MG/0.4 ML SYR SUBCUT SCH (20:34)
[2023-11-15] MEDS: ZOSYN 3.375 GM Q8H per EXTENDED INFUSION IV SCH (22:29)
[2023-11-15] MEDS: methylPREDNISolone SOD SUCC 125 mg 2 ML VIAL IV SCH (22:29)
[2023-11-15 23:47] LABS: Anion Gap 14 mmol/L (2-16); Blood Urea Nitrogen 34 mg/dL (6-24); CO2 Carbon Dioxide 28 mmol/L (22-32); Calcium 7.6 mg/dL (8.6-10.3); Chloride 89 mmol/L (101-111); Creatinine, Serum 1.92 mg/dL (0.51-0.95); Glucose 249 mg/dL (70-100); Sodium 131 mmol/L (135-145); eGFR CKD-EPI 27.9 (>60)
[2023-11-16 01:37] LABS: Urine Appearance Extra Turbid; Urine Bilirubin Negative (Negative); Urine Blood 3+ (Negative); Urine Glucose 1+ (>=70 mg/dL) (Negative); Urine Ketones Trace (Negative); Urine Nitrite Negative (Negative); Urine Protein 3+ (>=300 mg/dL) (Negative); Urine Specific Gravity 1.017 (1.002-1.030); Urine Urobilinogen Negative (Negative)
[2023-11-16 01:53] LABS: Urine Bacteria 1+ /HPF (Absent); Urine Red Blood Cell 3+(>10/hpf) /HPF (0-Trace); Urine Squamous Epithelial Cell Present /HPF (Absent); Urine White Blood Cell 3+(>20/hpf) /HPF (0-Trace)
[2023-11-16 01:56] LABS: Urine Color Light-Yellow
[2023-11-16 02:14] LABS: Urine Benzodiazepine Screen Presumptive Positive (None Detect); Urine Cannabinoids Screen None Detected (None Detect); Urine Opiates Screen None Detected (None Detect)
[2023-11-16] MEDS: Albuterol 2.5mg/3 ml (0.083%) NEB.SOLN INH PRN (03:13)
[2023-11-16 04:26] LABS: Hematocrit 39.9 % (35-45); Hemoglobin 12.5 g/dL (11.5-14.3); Mean Corpuscular Hemoglobin 24.2 pg (27-33); Mean Corpuscular Hgb Conc 31.4 g/dL (31-36); Mean Corpuscular Volume 77.1 fL (80-97); Mean Platelet Volume 8.4 fL (7.5-11.2); Platelet Count 261 10^3/uL (150-450); Red Blood Count 5.17 10^6/uL (3.63-4.92); Red Cell Distribution Width 19.4 % (12-17); White Blood Count 28.6 10^3/uL (3.8-11.8)
[2023-11-16 04:52] LABS: ABS Basophils 0.1 10^3/uL (0.0-0.1); ABS Eosinophils 0.1 10^3/uL (0.0-0.5); ABS Lymphocytes 0.5 10^3/uL (1.0-4.8); ABS Neutrophils 26.9 10^3/uL (1.5-7.6); ABS Nucleated RBC 0.05 10^3/ul; Eosinophil % 0.3 %; Lymphocyte % 1.7 %; Nucleated Red Blood Cells % 0.2 %/100WBC (0.0-0.8)
[2023-11-16] MEDS: Vancomycin Random Level NOTE FOLLOW UP ONE (05:03)
[2023-11-16 06:11] LABS: Anion Gap 13 mmol/L (2-16); Blood Urea Nitrogen 40 mg/dL (6-24); CO2 Carbon Dioxide 29 mmol/L (22-32); Calcium 7.5 mg/dL (8.6-10.3); Chloride 89 mmol/L (101-111); Glucose 217 mg/dL (70-100); Magnesium 2.1 mg/dL (1.9-2.7); Sodium 131 mmol/L (135-145); Vancomycin Random 20.4 mcg/mL; eGFR CKD-EPI 23.7 (>60)
[2023-11-16 08:59] LABS: PCO2 Arterial 53 mmHg (35-45); PO2 Arterial 94 mmHg (80-100)
[2023-11-16 09:20] LABS: Phosphorus 4.9 mg/dL (2.5-5.0); Potassium Redraw 5.3 mmol/L (3.5-5.0)
[2023-11-16] MEDS: fentaNYL INFUSION 50 mcg/mL VL 2,500 MCG/50 ML VIAL IV SCH (09:57)
[2023-11-16] MEDS: levETIRAcetam IV 3,000 MG in NS 0.9% 100 ml BAG 100 ML IVPB ONE (12:10)
[2023-11-16] MEDS: EPINEPHrine 1 MG/ML MDV 5 MG in D5W 250 ml BAG 245 ML IV SCH (13:11)
[2023-11-16] MEDS: Heparin 5000 UNITS/ML 1 mL VIAL SUBCUT SCH (14:14)
[2023-11-16] MEDS ORDERED: levETIRAcetam 1000MG IVPREMIX 1,000 MG/100 ML BAG IVPB SCH (23:00)
[2023-11-16] MEDS ORDERED: levETIRAcetam IV 750 MG in NS 0.9% 100 ML IVPB SCH (23:00)
[2023-11-17] MEDS ORDERED: Vancomycin Random Level NOTE FOLLOW UP ONE (06:00)
[2023-11-17] MEDS ORDERED: Famotidine IV 10 MG/ML 2 ml VIAL (20 mg) IV SLOW PU SCH (09:00)
== END 2023-11-16 19:23 | disposition expired | DRG 208 ==
LOC: ED 10:17 → EDHOLD 11:23 → ICU 11:35
PROVIDERS: ADMIT Student in an Organized Health Care Education/Training Program; ATTEND Internal Medicine